=== PATIENT | female | born 1945 | race Caucasian/White ===

== ENCOUNTER 2017-07-27 16:07 | Inpatient (IN) | payer MEDICARE, OTHER ==
--- NOTE | 2017-07-27 16:25 | ED Physician Chart ---
ED Chief Complaint/HPI - Patient Information Date Seen:: 07/27/17 Time Seen:: 16:00 Chief Complaint:: Agitation History of Present Illness:: onset x 2 days of agitation and hostile behavior; no report of trauma, SIs, H/As , S/T, neck pain, C/P, SOB, Abd. Pain, A/N/V/D/C, fever, chills, or urinary s/s Historian:: Patient, EMS Review:: Nurse's Note Reviewed, Old Chart Reviewed, EMS run form Reviewed <Kavin Jarquin - Last Filed: 07/27/17 18:43> - Patient Information Allergies:: Allergies Allergy/AdvReac Type Severity Reaction Status Date / Time bee pollen Allergy Verified 07/27/17 16:53 pepper (genus Capsicum) Allergy Verified 07/27/17 16:52 Vitals:: Vital Signs - 8 hr 07/27/17 16:39 Temp 97.9 F HR 82 RR 16 BP 137/69 O2 Sat % 93 <Toyin Talbert - Last Filed: 07/27/17 19:47> ED Review of Systems - Review of Systems General/Constitutional: No fever, No chills, No weight loss, No weakness, No diaphoresis, No edema, No loss of appetite Skin: No skin lesions, No rash, No bruising Head: No headache, No light-headedness Eyes: No loss of vision, No pain, No diplopia ENT: No earache, No nasal drainage, No sore throat, No tinnitus Neck: No neck pain, No swelling, No thyromegaly, No stiffness, No mass noted Cardio Vascular: No chest pain, No palpitations, No PND, No orthopnea, No edema Pulmonary: No SOB, No cough, No sputum, No wheezing GI: No nausea, No vomiting, No diarrhea, No pain, No melena, No hematochezia, No constipation, No hematemesis G/U: No dysuria, No frequency, No hematuria, No nacturia Card Lacer: No vaginal discharge, No abnormal vaginal bleed, No contraction Musculoskeletal: No bone or joint pain, No back pain, No muscle pain Endocrine: No polyuria, No polydipsia Psychiatric: Prior psych history, Depression, Anxiety, No suicidal ideation, No homicidal ideation, No auditory hallucination, No visual hallucination Hematopoietic: No bruising, No lymphadenopathy Allergic/Immuno: No urticaria, No angioedema Neurological: No syncope, No focal symptoms, No weakness, No paresthesia, No headache, No seizure, No dizziness, Confusion, No vertigo <Kavin Jarquin - Last Filed: 07/27/17 18:43> ED Past Medical History - Past Medical History Obtainable: Yes Past Medical History: HTN, Dyslipidemia, Dementia Family History: HTN Social History: Non Smoker, No Alcohol, No Drug Use, , Care Facility Surgical History: None Psychiatricy History: Depression, Bipolar, Dementia Medication: Reviewed <Kavin Jarquin Last Filed: 07/27/17 18:43> Family Medical History - Family Member Mother History Unknown: Yes <Kavin Jarquin Filed: 07/27/17 18:43> ED Physical Exam - Physical Examination General/Constitutional: Awake, Well-developed, well-nourished, Alert, No distress, GCS 15, Non-toxic appearing, Ambulatory Head: Atraumatic Eyes: Lids, conjuctiva normal, PERRL, EOMI Skin: Nl inspection, No rash, No skin lesions, No ecchymosis, Well hydrated, No lymphadenopathy ENMT: External ears, nose nl, TM canals nl, Nasal exam nl, Lips, teeth, gums nl , Oropharynx nl, Tonsils nl Neck: Nontender, Full ROM w/o pain, No JVD, No nuchal rigidity, No bruit, No mass, No stridor Respiratory: Nl effort/Exclusion, Clear to Auscultation, No Wheeze/Rhonchi/Rales Cardio Vascular: RRR, No murmur, gallop, rubs, NL S1 S2, Carotid/Femoral/Distal pulses equal bilaterally GI: No tenderness/rebounding/guarding, No organomegaly, No hernia, Normal BS's, Nondistended, No mass/bruits, No McBurney tenderness Other GI comments:: no pulsatile masses : No CVA tenderness Extremities: No tenderness or effusion, Full ROM, normal strength in all extremities, No edema, Normal digits & nails Neuro/Psych: Alert/oriented, DTR's symmetric, Normal sensory exam, Normal motor strength, Judgement/insight normal, Mood normal, Normal gait, No focal deficits Other Neuro/Psych comments:: + Psychomotor Agitation; no SIs; Mood/Affect: Labile Misc: Normal back, No paraspinal tenderness <Kavin Jarquin - Last Filed: 07/27/17 18:43> ED Labs/Radiology/EKG Results - Lab Results Comments:: unremarkable - EKG Interpretations EKG Time:: 16:28 Rate & Rhythm: 81; NSR Comments:: non-specific st-t changes; T-Wave Inversions in V1 to V4 <Kavin Jarquin - Last Filed: 07/27/17 18:43> - Lab Results Results: Laboratory Tests 07/27/17 07/27/17 07/27/17 16:36 16:36 16:36 WBC 12.7 H RBC 5.78 H Hgb 14.0 Hct 43.2 MCV 74.8 L MCH 24.2 L MCHC Differential 32.3 RDW 17.0 Plt Count 236 MPV 8.4 Band Neutrophils % 0 Neutrophils (Manual) 77 Lymphocytes 17 L Monocytes 5 Eosinophils 1 Platelet Estimate ADEQUATE Microcytosis 2+ Sodium 139 Potassium 4.1 Chloride 104 Carbon Dioxide 27.0 Anion Gap 12.1 BUN 22 Creatinine 0.6 Est GFR ( Amer) TNP Est GFR (Non-Af Amer) TNP BUN/Creatinine Ratio 36.7 Glucose 98 Whole Bld Lactic Acid Calcium 9.0 Total Bilirubin 0.5 AST 9 L ALT 9 Alkaline Phosphatase 83 Troponin I Total Protein 6.5 Albumin 3.8 Globulin 2.7 Albumin/Globulin Ratio 1.4 Triglycerides 150 Cholesterol 146 LDL Cholesterol Direct 92 HDL Cholesterol 25 TSH 0.71 Salicylates < 25.0 L Acetaminophen < 10.0 L Ethyl Alcohol < 10 07/27/17 07/27/17 16:36 16:36 WBC RBC Hgb Hct MCV MCH MCHC Differential RDW Plt Count MPV Band Neutrophils % Neutrophils (Manual) Lymphocytes Monocytes Eosinophils Platelet Estimate Microcytosis Sodium Potassium Chloride Carbon Dioxide Anion Gap BUN Creatinine Est GFR ( Amer) Est GFR (Non-Af Amer) BUN/Creatinine Ratio Glucose Whole Bld Lactic Acid 0.66 Calcium Total Bilirubin AST ALT Alkaline Phosphatase Troponin I < 0.01 L Total Protein Albumin Globulin Albumin/Globulin Ratio Triglycerides Cholesterol LDL Cholesterol Direct HDL Cholesterol TSH Salicylates Acetaminophen Ethyl Alcohol <Toyin Talbert - Last Filed: 07/27/17 19:47> ED Septic Shock - . Is Septic Shock (SBP<90, OR Lactate>4 mmol\L) present?: No <Kavin Jarquin - Last Filed: 07/27/17 18:43> - <6hrs of presentation: Vital Signs: Vital Signs - 8 hr 07/27/17 16:39 Temp 97.9 F HR 82 RR 16 BP 137/69 O2 Sat % 93 <Toyin Talbert - Last Filed: 07/27/17 19:47> ED Discharge Plan <Kavin Jarquin - Last Filed: 07/27/17 18:43> <Toyin Talbert - Last Filed: 07/27/17 19:47> - Patient Disposition Admit/Discharge/Transfer: Acute Care w/in this hosp
[2017-07-27 16:45] LABS: HEMATOCRIT 43.2 % (41.0-60); MEAN CELL VOLUME 74.8 fl (81-100); MEAN CORPUSCULAR HEMOGLOBIN 24.2 pg (27.0-31.0); MEAN CORPUSCULAR HGB CONC 32.3 pg (28.0-36.0); MEAN PLATELET VOLUME 8.4 fl; PLATELET COUNT 236 Th/cmm (150-400); RED BLOOD COUNT 5.78 Mil/cmm (3.80-5.20)
[2017-07-27 16:53] LABS: MANUAL DIFF REQUIRED? YES; WHITE BLOOD COUNT 12.7 Th/cmm (4.8-10.8)
[2017-07-27 17:19] LABS: BAND NEUTROPHILE 0 % (0-10); EOSINOPHIL 1 % (0-5); LYMPHOCYTE 17 % (20-50); MONOCYTE 5 % (2-10); NEUTROPHILS 77 % (40-80); PLATELET ESTIMATE ADEQUATE (NORMAL); TOTAL CELLS COUNTED 100
[2017-07-27 17:25] LABS: ACETAMINOPHEN < 10.0 ug/mL (10.0-30.0); ALB/GLOB RATIO 1.4 (1.0-1.8); ALBUMIN 3.8 gm/dL (3.7-5.3); ALKALINE PHOSPHATASE 83 U/L (34-104); ANION GAP 12.1 (7.0-16.0); BILIRUBIN,TOTAL 0.5 mg/dL (0.3-1.0); BUN - UREA NITROGEN 22 mg/dL (7-25); CHLORIDE 104 mEq/L (98-107); CHOLESTEROL 146 mg/dL (<200); CREATININE - SERUM 0.6 mg/dL (0.6-1.2); GLUCOSE 98 mg/dL (70-105); HDL -HIGH DENSITY LIPOPROTEIN 25 mg/dL (23-92); POTASSIUM SERUM 4.1 mEq/L (3.5-5.1); SGOT 9 U/L (13-39); SGPT/ALT 9 U/L (7-52); SODIUM SERUM 139 mEq/L (136-145); TOTAL PROTEIN,SERUM 6.5 gm/dL (6.0-8.3); TRIGLYCERIDES 150 mg/dL (<150)
[2017-07-27 17:34] LABS: SALICYLATES (ASPIRIN) < 25.0 mg/L (30.0-100.0)
[2017-07-27 20:25] LABS: A1C % 5.6 % (4.0-6.0)
[2017-07-27 23:14] VITALS: BP 111/60
[2017-07-27] MEDS ORDERED: Ipratropium Neb 0.5 mg/2.5 mL UD HHN PRN (23:24)
[2017-07-27] MEDS ORDERED: Magnesium Hydroxide (MOM) 30 mL UDC PO PRN (23:24)
[2017-07-28] MEDS: Potassium Chloride 10 mEq ER Tab PO SCH ×2 (09:34→17:51)
[2017-07-28] MEDS: Hydrocodone/APAP 10 mg/325 mg Tab PO SCH ×2 (09:39→21:39)
[2017-07-28] MEDS: Multivitamin Tab PO SCH (09:39)
--- NOTE | 2017-07-28 15:30 | Psychosocial Evaluation ---
DATE OF SERVICE: 07/28/2017 IDENTIFYING DATA: The patient is a 71-year-old woman, resident of [facility] in [place]. Information obtained by directly interviewing the patient as well as reviewing the admission papers. JUSTIFICATION FOR HOSPITALIZATION: The patient is admitted here on a voluntary basis in view of her agitation and irritability. CHIEF COMPLAINT: "Don't mess with Floresita." HISTORY OF PRESENT ILLNESS: This is the first psychiatric hospitalization to [facility] for this patient, who is reported to have been getting easily agitated and has been screaming and yelling and during the evaluation, the patient has been superficially cooperative and has been mentioning that, "Floresita has worked so hard and that one should not mess with her." The patient is going on a tangent. The patient is noted to be very paranoid. Review of the chart indicated that the patient has been on 0.25 mg twice a day of the anxiety medication and also has been on Aricept and Namenda. The patient has been getting easily irritable, angry and laughing and giggling when I am asking. The patient has been getting Depakote 250 mg twice a day for her agitated behavior. PAST PSYCHIATRIC HISTORY: Details are not known. MEDICAL HISTORY: Physical examination is requested to be done by Dr. Jacinto. SUBSTANCE ABUSE HISTORY: None. PHYSICAL OR SEXUAL ABUSE HISTORY: None. LEGAL PROBLEMS: None at this time. STRENGTH AND ASSETS: The patient is motivated. The patient is alert and aware that she is in the hospital and she is fully aware. The patient is more worried about her money at this time. DIAGNOSTIC IMPRESSION: AXIS I: Bipolar disorder, mixed. AXIS II: None. AXIS III: As per Dr. Jacinto. IMMEDIATE TREATMENT PLAN: The patient is going to be observed on the inpatient unit, provided with supportive psychotherapy. The patient is going to be closely monitored. Encouraged to verbalize the concerns rather than to act out. ESTIMATED LENGTH OF STAY: 5-7 days. DISCHARGE CRITERIA: When the patient is no longer a threat to self or others and be able to cope up with the stress. JOB# [id number]
--- NOTE | 2017-07-28 16:58 | History and Physical ---
History of Present Illness - HPI Chief Complaint: AGITATION HPI: THIS IS A 71-YEAR OLD FEMALE WHO IS A ALF RESIDENT ADMITTED TO THE GEROPSYCH UNIT DUE TO AGITATION. Vital Signs: Last Vital Signs Temp 98.9 F 07/28/17 15:17 Pulse 65 07/28/17 15:17 Resp 19 07/28/17 15:17 BP 101/62 07/28/17 09:38 Pulse Ox 99 07/28/17 15:17 Past Medical History Other History: HTN, Dyslipidemia, Dementia Family Medical History - Family Member Mother History Unknown: Yes Ethnicity: Non- Living Status: Unknown Hx Family Cancer: (UNKNOWN) Hx Family Coronary Artery Disease: (UNKNOWN) Hx Family Congestive Heart Failure: (UNKNOWN) Hx Family Hypertension: Yes Hx Family Stroke: (UNKNOWN) Hx Family Diabetes: (UNKNOWN) Hx Family Seizures: (UNKNOWN) Hx Family Dementia: (UNKNOWN) Hx Family AIDS: (UNKNOWN) Hx Family COPD: (UNKNOWN) Hx Family Hepatitis: (UNKNOWN) Hx Family Psychiatric Problems: (UNKNOWN) Hx Family Tuberculosis: (UNKNOWN) Social History Smoke: No Alcohol: None Drugs: None Lives: Skilled Nursing - Medications Home Medications: Home Medication Medication Instructions Recorded Type Acetaminophen 650 mg PO Q4HR 07/27/17 History Acetaminophen 650 mg PO Q4HR PRN 07/27/17 History Acetaminophen [Tylenol] 325 mg PO Q4HR PRN 07/27/17 History Alprazolam [Alprazolam*] 0.25 mg PO Q4HR PRN 07/27/17 History Aspirin [Aspirin Chewable] 81 mg PO DAILY 07/27/17 History Atorvastatin Calcium [Lipitor] 40 mg PO HS 07/27/17 History Carvedilol [Coreg] 12.5 mg PO BID 07/27/17 History Clonidine HCl [Catapres] 0.1 mg PO Q4HR PRN 07/27/17 History Clopidogrel [Plavix] 75 mg PO DAILY 07/27/17 History Divalproex Sodium [Depakote] 250 mg PO BID 07/27/17 History Docusate Sodium [Colace] 100 mg PO BID 07/27/17 History Donepezil HCl [Donepezil HCl Odt] 5 mg PO HS 07/27/17 History Famotidine [Pepcid] 40 mg PO DAILY 07/27/17 History Furosemide [Lasix] 20 mg PO DAILY 07/27/17 History Hydrocodone/APAP 10 mg/325 mg 1 tab PO Q12HR 07/27/17 History [[place] 10 mg/325 mg] Ipratropium Neb 0.5 mg/2.5 mL 1 inh INH Q4HR PRN 07/27/17 History [Atrovent Neb 0.5MG/2.5ML] Magnesium Hydroxide [Milk of 30 ml PO BID PRN 07/27/17 History Magnesia] Multivitamin [Multi-Day Vitamins] 1 tab PO DAILY 07/27/17 History Nitroglycerin [Nitroglycerin*] 0.4 mg SL Q5MIN PRN 07/27/17 History Ondansetron [Zofran ODT] 4 mg PO Q4HR PRN 07/27/17 History Potassium Chloride [K-Tab ER] 10 meq PO BID 07/27/17 History alprazOLAM [Xanax*] 0.25 mg PO BID 07/27/17 History - Allergies Allergies/Adverse Reactions: Allergies Allergy/AdvReac Type Severity Reaction Status Date / Time bee pollen Allergy Verified 07/27/17 16:53 pepper (genus Capsicum) Allergy Verified 07/27/17 16:52 Review of Systems - Review of Systems Constitutional: Report: No Significant Eyes: Report: No Significant Respiratory: Report: No Significant Cardiovascular: Report: No Significant Neurological: Report: No Significant Physical Exam - Physical Exam HEENT: Report: Ears Nose Throat within normal limits Neck: Report: Within normal limits Cardiovascular Systems: Report: +s1/s2 noted, Regular, Rate and Rhythm Respiratory: Report: Breath Sounds are within normal limits Abdomen: Report: Non-tender to palpation Skin: Report: Color of skin is within normal limits Neuro/Psych: Report: Mood affect is within normal limits - Lab Results All Lab Results last 24 hours: Laboratory Results - last 24 hr 07/27/17 07/27/17 07/27/17 16:36 16:36 16:36 Band Neutrophils % 0 Neutrophils (Manual) 77 Lymphocytes 17 L Monocytes 5 Eosinophils 1 Platelet Estimate ADEQUATE Microcytosis 2+ Sodium 139 Potassium 4.1 Chloride 104 Carbon Dioxide 27.0 Anion Gap 12.1 BUN 22 Creatinine 0.6 Est GFR ( Amer) TNP Est GFR (Non-Af Amer) TNP BUN/Creatinine Ratio 36.7 Glucose 98 Hemoglobin A1c % 5.6 Whole Bld Lactic Acid Calcium 9.0 Total Bilirubin 0.5 AST 9 L ALT 9 Alkaline Phosphatase 83 Troponin I Total Protein 6.5 Albumin 3.8 Globulin 2.7 Albumin/Globulin Ratio 1.4 Triglycerides 150 Cholesterol 146 LDL Cholesterol Direct 92 HDL Cholesterol 25 TSH Salicylates < 25.0 L Acetaminophen < 10.0 L Valproic Acid Ethyl Alcohol < 10 07/27/17 07/27/17 07/27/17 16:36 16:36 16:36 Band Neutrophils % Neutrophils (Manual) Lymphocytes Monocytes Eosinophils Platelet Estimate Microcytosis Sodium Potassium Chloride Carbon Dioxide Anion Gap BUN Creatinine Est GFR ( Amer) Est GFR (Non-Af Amer) BUN/Creatinine Ratio Glucose Hemoglobin A1c % Whole Bld Lactic Acid 0.66 Calcium Total Bilirubin AST ALT Alkaline Phosphatase Troponin I < 0.01 L Total Protein Albumin Globulin Albumin/Globulin Ratio Triglycerides Cholesterol LDL Cholesterol Direct HDL Cholesterol TSH 0.71 Salicylates Acetaminophen Valproic Acid Ethyl Alcohol 07/28/17 06:45 Band Neutrophils % Neutrophils (Manual) Lymphocytes Monocytes Eosinophils Platelet Estimate Microcytosis Sodium Potassium Chloride Carbon Dioxide Anion Gap BUN Creatinine Est GFR ( Amer) Est GFR (Non-Af Amer) BUN/Creatinine Ratio Glucose Hemoglobin A1c % Whole Bld Lactic Acid Calcium Total Bilirubin AST ALT Alkaline Phosphatase Troponin I Total Protein Albumin Globulin Albumin/Globulin Ratio Triglycerides Cholesterol LDL Cholesterol Direct HDL Cholesterol TSH Salicylates Acetaminophen Valproic Acid < 10.0 L Ethyl Alcohol Microbiology 07/27/17 16:36 - Preliminary Blood NO GROWTH AFTER 24 HOURS - Assessment Assessment: HTN, Dyslipidemia, Dementia - Plan Plan: monitor Bp closely continue current plan of care
[2017-07-28] MEDS ORDERED: Non-Formulary Item 1 EA (Atorvastatin Calcium [Lipitor] 40 MG) PO SCH (21:00)
[2017-07-29] MEDS: Multivitamin Tab PO SCH ×2 (09:45→10:15)
[2017-07-29] MEDS: Potassium Chloride 10 mEq ER Tab PO SCH ×2 (09:45→10:16)
[2017-07-29] MEDS: Hydrocodone/APAP 10 mg/325 mg Tab PO SCH ×3 (09:46→22:05)
--- NOTE | 2017-07-29 10:22 | General Progress Note ---
Subjective - Review of Systems Events since last encounter: patient awake irritable denies pain Objective - Results Result Diagrams: 07/27/17 16:36 07/27/17 16:36 Recent Labs: Laboratory Last Values WBC 12.7 Th/cmm (4.8-10.8) H 07/27/17 16:36 RBC 5.78 Mil/cmm (3.80-5.20) H 07/27/17 16:36 Hgb 14.0 gm/dL (12-16) 07/27/17 16:36 Hct 43.2 % (41.0-60) 07/27/17 16:36 MCV 74.8 fl (81-100) L 07/27/17 16:36 MCH 24.2 pg (27.0-31.0) L 07/27/17 16:36 MCHC Differential 32.3 pg (28.0-36.0) 07/27/17 16:36 RDW 17.0 % (11.5-20.0) 07/27/17 16:36 Plt Count 236 Th/cmm (150-400) 07/27/17 16:36 MPV 8.4 fl 07/27/17 16:36 Band Neutrophils % 0 % (0-10) 07/27/17 16:36 Neutrophils (Manual) 77 % (40-80) 07/27/17 16:36 Lymphocytes 17 % (20-50) L 07/27/17 16:36 Monocytes 5 % (2-10) 07/27/17 16:36 Eosinophils 1 % (0-5) 07/27/17 16:36 Platelet Estimate ADEQUATE (NORMAL) 07/27/17 16:36 Microcytosis 2+ 07/27/17 16:36 Sodium 139 mEq/L (136-145) 07/27/17 16:36 Potassium 4.1 mEq/L (3.5-5.1) 07/27/17 16:36 Chloride 104 mEq/L (98-107) 07/27/17 16:36 Carbon Dioxide 27.0 mEq/L (21.0-31.0) 07/27/17 16:36 Anion Gap 12.1 (7.0-16.0) 07/27/17 16:36 BUN 22 mg/dL (7-25) 07/27/17 16:36 Creatinine 0.6 mg/dL (0.6-1.2) 07/27/17 16:36 Est GFR ( Amer) TNP 07/27/17 16:36 Est GFR (Non-Af Amer) TNP 07/27/17 16:36 BUN/Creatinine Ratio 36.7 07/27/17 16:36 Glucose 98 mg/dL (70-105) 07/27/17 16:36 Hemoglobin A1c % 5.6 % (4.0-6.0) 07/27/17 16:36 Whole Bld Lactic Acid 0.66 mmol/L (0.60-1.99) 07/27/17 16:36 Calcium 9.0 mg/dL (8.6-10.3) 07/27/17 16:36 Total Bilirubin 0.5 mg/dL (0.3-1.0) 07/27/17 16:36 AST 9 U/L (13-39) L 07/27/17 16:36 ALT 9 U/L (7-52) 07/27/17 16:36 Alkaline Phosphatase 83 U/L (34-104) 07/27/17 16:36 Troponin I < 0.01 ng/mL (0.01-0.05) L 07/27/17 16:36 Total Protein 6.5 gm/dL (6.0-8.3) 07/27/17 16:36 Albumin 3.8 gm/dL (3.7-5.3) 07/27/17 16:36 Globulin 2.7 gm/dL 07/27/17 16:36 Albumin/Globulin Ratio 1.4 (1.0-1.8) 07/27/17 16:36 Triglycerides 150 mg/dL (<150) 07/27/17 16:36 Cholesterol 146 mg/dL (<200) 07/27/17 16:36 LDL Cholesterol Direct 92 mg/dL (75-193) 07/27/17 16:36 HDL Cholesterol 25 mg/dL (23-92) 07/27/17 16:36 TSH 0.71 uIU/ml (0.34-5.60) 07/27/17 16:36 Salicylates < 25.0 mg/L (30.0-100.0) L 07/27/17 16:36 Acetaminophen < 10.0 ug/mL (10.0-30.0) L 07/27/17 16:36 Valproic Acid < 10.0 ug/mL (50.0-100.0) L 07/28/17 06:45 Ethyl Alcohol < 10 mg/dL (0-10) 07/27/17 16:36 - Physical Exam Vitals and I&O: Vital Signs Temp 98.1 F 07/28/17 20:00 Pulse 65 07/28/17 20:00 Resp 20 07/28/17 20:00 BP 127/63 07/28/17 20:00 Pulse Ox 98 07/28/17 20:00 Intake & Output 07/28/17 07/29/17 07/29/17 18:59 06:59 18:59 Intake Total 1300 540 Balance 1300 540 Intake: Oral 1300 540 Other: # Voids 3 2 # Bowel Movements 1 1 Stool Characteristics Formed Active Medications: Current Medications Acetaminophen (Tylenol) 650 mg PO Q4HR PRN PRN Reason: Fever > 101 Stop: 09/25/17 23:23 Acetaminophen (Tylenol) 325 mg PO Q4HR PRN PRN Reason: Pain (Mild) Stop: 09/25/17 23:23 Acetaminophen (Tylenol) 650 mg PO Q4HR PRN PRN Reason: Pain (Moderate) Stop: 09/26/17 00:00 Acetaminophen/Hydrocodone Bitart ([place] 10 Mg/325 Mg) 1 tab PO Q12HR COUNTS INCLUDE 234 BEDS AT THE [facility] Stop: 09/26/17 08:59 Last Admin: 07/29/17 10:15 Dose: Not Given Alprazolam (Xanax) 0.25 mg PO BID PRN; Protocol PRN Reason: Anxiety Stop: 09/26/17 06:16 Atorvastatin Calcium (Lipitor) 40 mg PO HS COUNTS INCLUDE 234 BEDS AT THE [facility] Stop: 09/26/17 20:59 Last Admin: 07/28/17 21:30 Dose: 40 mg Carvedilol (Coreg) 12.5 mg PO BID COUNTS INCLUDE 234 BEDS AT THE [facility] Stop: 09/26/17 08:59 Last Admin: 07/29/17 10:15 Dose: Not Given Clopidogrel Bisulfate (Plavix) 75 mg PO DAILY COUNTS INCLUDE 234 BEDS AT THE [facility] Stop: 09/26/17 08:59 Last Admin: 07/29/17 10:15 Dose: Not Given Divalproex Sodium (Depakote Dr) 250 mg PO BID COUNTS INCLUDE 234 BEDS AT THE [facility]; Protocol Stop: 09/26/17 08:59 Last Admin: 07/29/17 10:15 Dose: Not Given Docusate Sodium (Colace) 100 mg PO BID GIANCARLO Stop: 09/26/17 08:59 Last Admin: 07/29/17 10:15 Dose: Not Given Donepezil HCl (Aricept) 5 mg PO HS COUNTS INCLUDE 234 BEDS AT THE [facility] Stop: 09/26/17 20:59 Last Admin: 07/28/17 21:41 Dose: 5 mg Famotidine (Pepcid) 40 mg PO DAILY GIANCARLO Stop: 09/26/17 08:59 Last Admin: 07/29/17 10:15 Dose: Not Given Furosemide (Lasix) 20 mg PO DAILY GIANCARLO Stop: 09/26/17 08:59 Last Admin: 07/29/17 10:15 Dose: Not Given Ipratropium [place] (Atrovent Neb 0.5mg/2.5ml) 0.5 mg HHN Q4HR PRN PRN Reason: copd Stop: 09/25/17 23:23 Magnesium Hydroxide (Milk Of Magnesia) 30 ml PO BID PRN PRN Reason: Constipation Stop: 09/25/17 23:23 Multivitamins/Vitamin C (Theragran) 1 tab PO DAILY COUNTS INCLUDE 234 BEDS AT THE [facility] Stop: 09/26/17 08:59 Last Admin: 07/29/17 10:15 Dose: Not Given Nitroglycerin (Nitrostat) 0.4 mg SL Q5MIN PRN PRN Reason: Chest Pain Stop: 09/25/17 23:23 Ondansetron HCl (Zofran Odt) 4 mg PO Q4HR PRN PRN Reason: Nausea Stop: 09/25/17 23:23 Potassium Chloride (Klor-Con) 10 meq PO BID GIANCARLO Stop: 09/26/17 08:59 Last Admin: 07/29/17 10:16 Dose: Not Given Quetiapine Fumarate (Seroquel) 12.5 mg PO HS COUNTS INCLUDE 234 BEDS AT THE [facility]; Protocol Stop: 09/26/17 20:59 Last Admin: 07/28/17 21:41 Dose: 12.5 mg Zolpidem Tartrate (Ambien) 5 mg PO HS PRN PRN Reason: Insomnia Stop: 09/25/17 22:59 Last Admin: 07/28/17 21:49 Dose: 5 mg General: No acute distress HEENT: Atraumatic Neck: Supple, Thyromegaly Cardiovascular: Regular rate, Normal S1, Normal S2 Lungs: Clear to auscultation Abdomen: Bowel sounds Assessment/Plan - Problem List Patient Problems: All Active Problems Dementia (Acute) F03.90 Dyslipidemia (Acute) E78.5 HTN (hypertension) (Acute) I10 - Plan Plan: as per psych
--- NOTE | 2017-07-29 13:50 | Progress Notes ---
DATE: 07/29/2017 SUBJECTIVE: Staff was spoken to. The patient is interviewed. Mood is noted to be irritable. Affect is constricted. Coping skills are noted to be very poor at this time. Insight and judgment also noted very much impaired. The patient has been having difficult time to cope with the stress. The patient is having acute mood swings. The patient is getting easily irritable even at the staff. The patient is currently on the alprazolam 0.25 mg on a p.r.n. basis. The patient is getting valproic acid 250 mg twice a day. The patient has been placed on the Seroquel, which is given at 12.5 mg. I am planning to increase Seroquel to 25 mg today. I encouraged the patient to verbalize the concerns rather than to act out. ____ that the patient is paranoid and having acute mood swings and is not ready to be discharged to a lower level of care. [facility]# [id number]
[2017-07-30] MEDS: Multivitamin Tab PO SCH (09:39)
[2017-07-30] MEDS: Potassium Chloride 10 mEq ER Tab PO SCH ×2 (09:40→17:02)
[2017-07-30] MEDS: Hydrocodone/APAP 10 mg/325 mg Tab PO SCH ×2 (09:43→21:00)
--- NOTE | 2017-07-30 11:16 | General Progress Note ---
Subjective - Review of Systems Events since last encounter: patient irritable awake alert Objective - Results Result Diagrams: 07/27/17 16:36 07/27/17 16:36 Recent Labs: Laboratory Last Values WBC 12.7 Th/cmm (4.8-10.8) H 07/27/17 16:36 RBC 5.78 Mil/cmm (3.80-5.20) H 07/27/17 16:36 Hgb 14.0 gm/dL (12-16) 07/27/17 16:36 Hct 43.2 % (41.0-60) 07/27/17 16:36 MCV 74.8 fl (81-100) L 07/27/17 16:36 MCH 24.2 pg (27.0-31.0) L 07/27/17 16:36 MCHC Differential 32.3 pg (28.0-36.0) 07/27/17 16:36 RDW 17.0 % (11.5-20.0) 07/27/17 16:36 Plt Count 236 Th/cmm (150-400) 07/27/17 16:36 MPV 8.4 fl 07/27/17 16:36 Band Neutrophils % 0 % (0-10) 07/27/17 16:36 Neutrophils (Manual) 77 % (40-80) 07/27/17 16:36 Lymphocytes 17 % (20-50) L 07/27/17 16:36 Monocytes 5 % (2-10) 07/27/17 16:36 Eosinophils 1 % (0-5) 07/27/17 16:36 Platelet Estimate ADEQUATE (NORMAL) 07/27/17 16:36 Microcytosis 2+ 07/27/17 16:36 Sodium 139 mEq/L (136-145) 07/27/17 16:36 Potassium 4.1 mEq/L (3.5-5.1) 07/27/17 16:36 Chloride 104 mEq/L (98-107) 07/27/17 16:36 Carbon Dioxide 27.0 mEq/L (21.0-31.0) 07/27/17 16:36 Anion Gap 12.1 (7.0-16.0) 07/27/17 16:36 BUN 22 mg/dL (7-25) 07/27/17 16:36 Creatinine 0.6 mg/dL (0.6-1.2) 07/27/17 16:36 Est GFR ( Amer) TNP 07/27/17 16:36 Est GFR (Non-Af Amer) TNP 07/27/17 16:36 BUN/Creatinine Ratio 36.7 07/27/17 16:36 Glucose 98 mg/dL (70-105) 07/27/17 16:36 Hemoglobin A1c % 5.6 % (4.0-6.0) 07/27/17 16:36 Whole Bld Lactic Acid 0.66 mmol/L (0.60-1.99) 07/27/17 16:36 Calcium 9.0 mg/dL (8.6-10.3) 07/27/17 16:36 Total Bilirubin 0.5 mg/dL (0.3-1.0) 07/27/17 16:36 AST 9 U/L (13-39) L 07/27/17 16:36 ALT 9 U/L (7-52) 07/27/17 16:36 Alkaline Phosphatase 83 U/L (34-104) 07/27/17 16:36 Troponin I < 0.01 ng/mL (0.01-0.05) L 07/27/17 16:36 Total Protein 6.5 gm/dL (6.0-8.3) 07/27/17 16:36 Albumin 3.8 gm/dL (3.7-5.3) 07/27/17 16:36 Globulin 2.7 gm/dL 07/27/17 16:36 Albumin/Globulin Ratio 1.4 (1.0-1.8) 07/27/17 16:36 Triglycerides 150 mg/dL (<150) 07/27/17 16:36 Cholesterol 146 mg/dL (<200) 07/27/17 16:36 LDL Cholesterol Direct 92 mg/dL (75-193) 07/27/17 16:36 HDL Cholesterol 25 mg/dL (23-92) 07/27/17 16:36 TSH 0.71 uIU/ml (0.34-5.60) 07/27/17 16:36 Salicylates < 25.0 mg/L (30.0-100.0) L 07/27/17 16:36 Acetaminophen < 10.0 ug/mL (10.0-30.0) L 07/27/17 16:36 Valproic Acid < 10.0 ug/mL (50.0-100.0) L 07/28/17 06:45 Ethyl Alcohol < 10 mg/dL (0-10) 07/27/17 16:36 - Physical Exam Vitals and I&O: Vital Signs Temp 98.1 F 07/30/17 04:56 Pulse 80 07/30/17 09:44 Resp 18 07/30/17 04:56 BP 145/85 07/30/17 09:44 Pulse Ox 91 07/30/17 04:56 Intake & Output 07/29/17 07/30/17 07/30/17 18:59 06:59 18:59 Intake Total 240 Balance 240 Intake: Oral 240 Other: # Voids 2 Active Medications: Current Medications Acetaminophen (Tylenol) 650 mg PO Q4HR PRN PRN Reason: Fever > 101 Stop: 09/25/17 23:23 Acetaminophen (Tylenol) 325 mg PO Q4HR PRN PRN Reason: Pain (Mild) Stop: 09/25/17 23:23 Acetaminophen (Tylenol) 650 mg PO Q4HR PRN PRN Reason: Pain (Moderate) Stop: 09/26/17 00:00 Acetaminophen/Hydrocodone Bitart ([place] 10 Mg/325 Mg) 1 tab PO Q12HR [facility] Stop: 09/26/17 08:59 Last Admin: 07/30/17 09:43 Dose: 1 tab Alprazolam (Xanax) 0.25 mg PO BID PRN; Protocol PRN Reason: Anxiety Stop: 09/26/17 06:16 Atorvastatin Calcium (Lipitor) 40 mg PO HS [facility] Stop: 09/26/17 20:59 Last Admin: 07/29/17 22:05 Dose: 40 mg Carvedilol (Coreg) 12.5 mg PO BID [facility] Stop: 09/26/17 08:59 Last Admin: 07/30/17 09:44 Dose: 12.5 mg Clopidogrel Bisulfate (Plavix) 75 mg PO DAILY [facility] Stop: 09/26/17 08:59 Last Admin: 07/30/17 09:39 Dose: 75 mg Divalproex Sodium (Depakote Dr) 250 mg PO BID [facility]; Protocol Stop: 09/26/17 08:59 Last Admin: 06/04/18 09:41 Dose: 250 mg Docusate Sodium (Colace) 100 mg PO BID [facility] Stop: 09/26/17 08:59 Last Admin: 07/30/17 09:39 Dose: 100 mg Donepezil HCl (Aricept) 5 mg PO HS [facility] Stop: 09/26/17 20:59 Last Admin: 07/29/17 22:05 Dose: 5 mg Famotidine (Pepcid) 40 mg PO DAILY [facility] Stop: 09/26/17 08:59 Last Admin: 07/30/17 09:39 Dose: 40 mg Furosemide (Lasix) 20 mg PO DAILY [facility] Stop: 09/26/17 08:59 Last Admin: 07/30/17 09:41 Dose: 20 mg Ipratropium [place] (Atrovent Neb 0.5mg/2.5ml) 0.5 mg HHN Q4HR PRN PRN Reason: copd Stop: 09/25/17 23:23 Magnesium Hydroxide (Milk Of Magnesia) 30 ml PO BID PRN PRN Reason: Constipation Stop: 09/25/17 23:23 Multivitamins/Vitamin C (Theragran) 1 tab PO DAILY [facility] Stop: 09/26/17 08:59 Last Admin: 07/30/17 09:39 Dose: Not Given Nitroglycerin (Nitrostat) 0.4 mg SL Q5MIN PRN PRN Reason: Chest Pain Stop: 09/25/17 23:23 Ondansetron HCl (Zofran Odt) 4 mg PO Q4HR PRN PRN Reason: Nausea Stop: 09/25/17 23:23 Potassium Chloride (Klor-Con) 10 meq PO BID [facility] Stop: 09/26/17 08:59 Last Admin: 07/30/17 09:40 Dose: 10 meq Quetiapine Fumarate (Seroquel) 25 mg PO HS [facility]; Protocol Stop: 09/27/17 20:59 Last Admin: 07/29/17 22:03 Dose: 25 mg Zolpidem Tartrate (Ambien) 5 mg PO HS PRN PRN Reason: Insomnia Stop: 09/25/17 22:59 Last Admin: 07/28/17 21:49 Dose: 5 mg General: No acute distress HEENT: Atraumatic Neck: Supple, Thyromegaly Cardiovascular: Regular rate, Normal S1, Normal S2 Lungs: Clear to auscultation Abdomen: Bowel sounds Assessment/Plan - Problem List Patient Problems: All Active Problems Dementia (Acute) F03.90 Dyslipidemia (Acute) E78.5 HTN (hypertension) (Acute) I10 - Plan Plan: as per psych
--- NOTE | 2017-07-31 00:13 | Progress Notes ---
DATE: 07/30/2017 SUBJECTIVE: Staff was spoken to. The patient is interviewed. Mood is noted to be irritable. Affect is constricted. The patient's insight and judgment at this time are noted to be ____. Impulse control was noted to be limited. The patient has been having difficult time to cope with the stress. The patient is having acute mood swings at this time. ASSESSMENT: The patient is still grossly psychotic. PLAN: To continue the patient with the supportive therapy. Encouraged the patient to verbalize the concerns rather than to act out. JOB# [id number]
[2017-07-31] MEDS: Potassium Chloride 10 mEq ER Tab PO SCH ×2 (09:24→17:21)
[2017-07-31] MEDS: Hydrocodone/APAP 10 mg/325 mg Tab PO SCH ×2 (09:24→21:05)
[2017-07-31] MEDS: Multivitamin Tab PO SCH (09:25)
--- NOTE | 2017-07-31 16:56 | Consultation ---
DATE OF CONSULTATION: 07/30/2017 REQUESTING PHYSICIAN: Arsen Oswald M.D. TYPE OF CONSULTATION: Psychology. HISTORY OF PRESENT ILLNESS: The patient is a 71-year-old female. The patient is a resident of [facility] in [place]. The patient is known to this typewriter mechanic from that snf facility. The following is by review of the medical record and by patient's self-report. The patient is being admitted due to agitation and increased irritability as well as possible psychosis. The patient was reported to have been getting easily agitated with screaming and yelling episodes at her facility. During the clinical interview, the patient rambled with pressured speech and was difficult to cognitively redirect or reality orient. The patient knows this typewriter mechanic and did respond occasionally to redirection cognitively from her tangential thought. The patient has paranoid ideation as well. The patient had fluctuating moods from laughing and giggling to becoming serious and irritated. The patient denies any suicidal ideation, plan or intention at this time. PAST MEDICAL HISTORY: Please see history and physical by Dr. Jacinto. PAST PSYCHIATRIC HISTORY: The patient has a long history of bipolar disorder, mixed with psychotic features. The patient is under the care of a psychiatrist and psychologist at her placement. SUBSTANCE ABUSE HISTORY: None. PSYCHOSOCIAL HISTORY: The patient denies any history of physical or sexual abuse or any legal problems. The patient did not discuss occupational or educational history. The patient declined to answer any other questions. The patient's thought process is markedly tangential with derailments and difficult to redirect and is highly distractible. The patient wishes to return to her snf facility. MENTAL STATUS EXAMINATION: The patient appears to be her stated age. The patient's attitude is superficially cooperative. Eye contact is fair. Speech is pressured and hyperverbal. Mood is fluctuating from irritability to inappropriate laughing and giggling. Thought process indicates derailments and loose associations and is markedly tangential and highly distractible. The patient denied any auditory or visual hallucinations. There is evidence of some paranoid ideation. The patient's behavior has been difficult to redirect on the unit; however, the patient is becoming more agreeable during the clinical interview. Impulse control is inadequate. Concentration is poor. The patient is easily distracted. Sensorium is alert and oriented to person and place. The patient's immediate memory is intact. Short-term and long-term memory are somewhat impaired; however, the patient is able to recall this typewriter mechanic. The patient did not participate in the interpretation of proverbs. Insight is impaired and Judgment is compromised. DIAGNOSTIC IMPRESSION: AXIS I: Bipolar disorder mixed with psychotic features. AXIS II: Deferred. AXIS III: Please see history and physical by Dr. Jacinto. TREATMENT PLAN: The patient has been seen by Dr. Oswald for psychiatric evaluation and for the management of the patient's psychotropic medications. We will provide supportive psychotherapy to include reality orientation, reality differentiation and reality integration. We will provide de-escalation as well as limit setting. We will provide cognitive behavioral therapy to assist the patient in being able to sustain focus and attention. We will provide motivational asking for the patient to become compliant and stay compliant with all aspects of her care and treatment. We will encourage her to verbalize her concerns versus any verbal outbursts or aggression. We will provide coping strategies for chronic long-term illness as well as phase of life issues. We will encourage the patient to be able to demonstrate emotional self-regulation prior to her discharge. Thank you, Dr. Oswald for this consult and the opportunity to participate with you in this patient's care. [facility]# [id number] L[place]ISE
--- NOTE | 2017-07-31 22:00 | General Progress Note ---
Subjective - Review of Systems Service Date: 07/31/17 Subjective: awake, nad Objective - Results Result Diagrams: 07/27/17 16:36 07/27/17 16:36 Recent Labs: Laboratory Last Values WBC 12.7 Th/cmm (4.8-10.8) H 07/27/17 16:36 RBC 5.78 Mil/cmm (3.80-5.20) H 07/27/17 16:36 Hgb 14.0 gm/dL (12-16) 07/27/17 16:36 Hct 43.2 % (41.0-60) 07/27/17 16:36 MCV 74.8 fl (81-100) L 07/27/17 16:36 MCH 24.2 pg (27.0-31.0) L 07/27/17 16:36 MCHC Differential 32.3 pg (28.0-36.0) 07/27/17 16:36 RDW 17.0 % (11.5-20.0) 07/27/17 16:36 Plt Count 236 Th/cmm (150-400) 07/27/17 16:36 MPV 8.4 fl 07/27/17 16:36 Band Neutrophils % 0 % (0-10) 07/27/17 16:36 Neutrophils (Manual) 77 % (40-80) 07/27/17 16:36 Lymphocytes 17 % (20-50) L 07/27/17 16:36 Monocytes 5 % (2-10) 07/27/17 16:36 Eosinophils 1 % (0-5) 07/27/17 16:36 Platelet Estimate ADEQUATE (NORMAL) 07/27/17 16:36 Microcytosis 2+ 07/27/17 16:36 Sodium 139 mEq/L (136-145) 07/27/17 16:36 Potassium 4.1 mEq/L (3.5-5.1) 07/27/17 16:36 Chloride 104 mEq/L (98-107) 07/27/17 16:36 Carbon Dioxide 27.0 mEq/L (21.0-31.0) 07/27/17 16:36 Anion Gap 12.1 (7.0-16.0) 07/27/17 16:36 BUN 22 mg/dL (7-25) 07/27/17 16:36 Creatinine 0.6 mg/dL (0.6-1.2) 07/27/17 16:36 Est GFR ( Amer) TNP 07/27/17 16:36 Est GFR (Non-Af Amer) TNP 07/27/17 16:36 BUN/Creatinine Ratio 36.7 07/27/17 16:36 Glucose 98 mg/dL (70-105) 07/27/17 16:36 Hemoglobin A1c % 5.6 % (4.0-6.0) 07/27/17 16:36 Whole Bld Lactic Acid 0.66 mmol/L (0.60-1.99) 07/27/17 16:36 Calcium 9.0 mg/dL (8.6-10.3) 07/27/17 16:36 Total Bilirubin 0.5 mg/dL (0.3-1.0) 07/27/17 16:36 AST 9 U/L (13-39) L 07/27/17 16:36 ALT 9 U/L (7-52) 07/27/17 16:36 Alkaline Phosphatase 83 U/L (34-104) 07/27/17 16:36 Troponin I < 0.01 ng/mL (0.01-0.05) L 07/27/17 16:36 Total Protein 6.5 gm/dL (6.0-8.3) 07/27/17 16:36 Albumin 3.8 gm/dL (3.7-5.3) 07/27/17 16:36 Globulin 2.7 gm/dL 07/27/17 16:36 Albumin/Globulin Ratio 1.4 (1.0-1.8) 07/27/17 16:36 Triglycerides 150 mg/dL (<150) 07/27/17 16:36 Cholesterol 146 mg/dL (<200) 07/27/17 16:36 LDL Cholesterol Direct 92 mg/dL (75-193) 07/27/17 16:36 HDL Cholesterol 25 mg/dL (23-92) 07/27/17 16:36 TSH 0.71 uIU/ml (0.34-5.60) 07/27/17 16:36 Salicylates < 25.0 mg/L (30.0-100.0) L 07/27/17 16:36 Acetaminophen < 10.0 ug/mL (10.0-30.0) L 07/27/17 16:36 Valproic Acid < 10.0 ug/mL (50.0-100.0) L 07/28/17 06:45 Ethyl Alcohol < 10 mg/dL (0-10) 07/27/17 16:36 - Physical Exam Vitals and I&O: Vital Signs Temp 98 F 07/31/17 18:27 Pulse 73 07/31/17 18:27 Resp 18 07/31/17 18:27 BP 121/63 07/31/17 18:27 Pulse Ox 93 07/31/17 18:27 Intake & Output 07/31/17 07/31/17 08/01/17 06:59 18:59 06:59 Intake Total 240 Balance 240 Intake: Oral 240 Other: # Voids 2 Active Medications: Current Medications Acetaminophen (Tylenol) 650 mg PO Q4HR PRN PRN Reason: Fever > 101 Stop: 09/25/17 23:23 Acetaminophen (Tylenol) 325 mg PO Q4HR PRN PRN Reason: Pain (Mild) Stop: 09/25/17 23:23 Acetaminophen (Tylenol) 650 mg PO Q4HR PRN PRN Reason: Pain (Moderate) Stop: 09/26/17 00:00 Acetaminophen/Hydrocodone Bitart ([place] 10 Mg/325 Mg) 1 tab PO Q12HR [facility] Stop: 09/26/17 08:59 Last Admin: 07/31/17 21:05 Dose: 1 tab Alprazolam (Xanax) 0.25 mg PO BID PRN; Protocol PRN Reason: Anxiety Stop: 09/26/17 06:16 Atorvastatin Calcium (Lipitor) 40 mg PO HS [facility] Stop: 09/26/17 20:59 Last Admin: 07/31/17 21:05 Dose: 40 mg Carvedilol (Coreg) 12.5 mg PO BID [facility] Stop: 09/26/17 08:59 Last Admin: 07/31/17 17:22 Dose: Not Given Clopidogrel Bisulfate (Plavix) 75 mg PO DAILY [facility] Stop: 09/26/17 08:59 Last Admin: 07/31/17 09:25 Dose: 75 mg Divalproex Sodium (Depakote Dr) 250 mg PO BID [facility]; Protocol Stop: 09/26/17 08:59 Last Admin: 07/31/17 17:21 Dose: 250 mg Docusate Sodium (Colace) 100 mg PO BID [facility] Stop: 09/26/17 08:59 Last Admin: 07/31/17 17:21 Dose: 100 mg Donepezil HCl (Aricept) 5 mg PO HS [facility] Stop: 09/26/17 20:59 Last Admin: 07/31/17 21:05 Dose: 5 mg Famotidine (Pepcid) 40 mg PO DAILY [facility] Stop: 09/26/17 08:59 Last Admin: 07/31/17 09:25 Dose: 40 mg Furosemide (Lasix) 20 mg PO DAILY [facility] Stop: 09/26/17 08:59 Last Admin: 07/31/17 09:25 Dose: 20 mg Ipratropium [place] (Atrovent Neb 0.5mg/2.5ml) 0.5 mg HHN Q4HR PRN PRN Reason: copd Stop: 09/25/17 23:23 Magnesium Hydroxide (Milk Of Magnesia) 30 ml PO BID PRN PRN Reason: Constipation Stop: 09/25/17 23:23 Multivitamins/Vitamin C (Theragran) 1 tab PO DAILY [facility] Stop: 09/26/17 08:59 Last Admin: 07/31/17 09:25 Dose: 1 tab Nitroglycerin (Nitrostat) 0.4 mg SL Q5MIN PRN PRN Reason: Chest Pain Stop: 09/25/17 23:23 Ondansetron HCl (Zofran Odt) 4 mg PO Q4HR PRN PRN Reason: Nausea Stop: 09/25/17 23:23 Potassium Chloride (Klor-Con) 10 meq PO BID [facility] Stop: 09/26/17 08:59 Last Admin: 07/31/17 17:21 Dose: 10 meq Quetiapine Fumarate (Seroquel) 25 mg PO HS [facility]; Protocol Stop: 09/27/17 20:59 Last Admin: 07/31/17 21:05 Dose: 25 mg Zolpidem Tartrate (Ambien) 5 mg PO HS PRN PRN Reason: Insomnia Stop: 09/25/17 22:59 Last Admin: 07/28/17 21:49 Dose: 5 mg General: No acute distress HEENT: Atraumatic Neck: Supple, Thyromegaly Cardiovascular: Regular rate, Normal S1, Normal S2 Lungs: Clear to auscultation Abdomen: Bowel sounds Assessment/Plan - Problem List Patient Problems: All Active Problems Dementia (Acute) F03.90 Dyslipidemia (Acute) E78.5 HTN (hypertension) (Acute) I10 - Plan Plan: as per psych Nutritional Asmnt/Malnutr-PDOC - Dietary Evaluation Malnutrition Findings (Please click <Entered> for more info): Nutritional Asmnt/Malnutrition Start: 07/31/17 15: 07 Text: Status: Complete Freq: Protocol: Document 07/31/17 15:07 LCHENG (Rec: 07/31/17 15:17 [id number] Nutritional Asmnt/Malnutrition Patient General Information Nutritional Screening Moderate Risk Diagnosis psychosis Pertinent Medical Hx/Surgical Hx HTN, dyslipidemia, dementia Subjective Information Pt seen sitting up in bed at time of visit, lunch tray in front. Pt asked dietitian to get out, refused to talk. Per EMR, PO intake 50-1005, avg 75 %. Current Diet Order/ Nutrition Support regular Pertinent Medications colace, lasix, theragran, kcl, seroquel Pertinent Labs 07/27 nutrition labs WNL Nutritional Hx/Data Height 1.6 m Height (Calculated Centimeters) 160.0 Current Weight (lbs) 74.389 kg Weight (Calculated Kilograms) 74.4 Weight (Calculated Grams) 85248.1 [place] Body Weight 63 Body Mass Index (BMI) 29.0 Weight Status Overweight GI Symptoms GI Symptoms None Last BM 6/2 x 2 Difficult in: None Food Allergies Yes: pepper (genus capsicum) Skin Integrity/Comment: intact Estimated Nutritional Goals Calories/Kcals/Kg 25-30 Kcals Calculated [id number] Protein g/k Protein Calculated 53 Fluid: ml 1325-1590ml (1ml/kcal) Nutritional Problem No current Nutrition Prob Problem NA Malnutrition Alert Is there a minimum of two criteria No selected? Query Text:Check all the applicable criteria. A minimum of two criteria are recommended for diagnosis of either severe or non-severe malnutrition. Malnutrition Related to Morbid Obesity Malnutrition related to morbid obesity No Intervention/Recommendation Comments 1. Continue with regular diet as ordered. 2. Monitor PO intake, wt, labs and skin integrity 3. F/U as low risk in 7 days, 08/07 Expected Outcomes/Goals Expected Outcomes/Goals 1. PO intake to meet at least 75% of nutritional needs. 2. Wt stability, skin to remain intact, labs to approach WNL.
--- NOTE | 2017-07-31 22:46 | Progress Notes ---
DATE: 07/27/2017 PSYCHIATRIC PROGRESS NOTE SUBJECTIVE: Staff was spoken to. The patient is interviewed. Mood is noted to be irritable. Affect is constricted. The patient is still very demanding. Coping skills are noted to be poor. Insight and judgment also noted to be very poor. The patient has been having difficult time to cope with the stress. ASSESSMENT: The patient is still having acute mood swings. PLAN: To continue the patient with the supportive therapy and followup. JOB# [id number]
[2017-08-01] MEDS: Hydrocodone/APAP 10 mg/325 mg Tab PO SCH ×2 (09:26→20:46)
[2017-08-01] MEDS: Potassium Chloride 10 mEq ER Tab PO SCH ×2 (09:26→16:28)
[2017-08-01] MEDS: Multivitamin Tab PO SCH (09:26)
--- NOTE | 2017-08-01 15:46 | General Progress Note ---
Subjective - Review of Systems Service Date: 08/01/17 Subjective: awake, alert nad Objective - Results Result Diagrams: 07/27/17 16:36 07/27/17 16:36 Recent Labs: Laboratory Last Values WBC 12.7 Th/cmm (4.8-10.8) H 07/27/17 16:36 RBC 5.78 Mil/cmm (3.80-5.20) H 07/27/17 16:36 Hgb 14.0 gm/dL (12-16) 07/27/17 16:36 Hct 43.2 % (41.0-60) 07/27/17 16:36 MCV 74.8 fl (81-100) L 07/27/17 16:36 MCH 24.2 pg (27.0-31.0) L 07/27/17 16:36 MCHC Differential 32.3 pg (28.0-36.0) 07/27/17 16:36 RDW 17.0 % (11.5-20.0) 07/27/17 16:36 Plt Count 236 Th/cmm (150-400) 07/27/17 16:36 MPV 8.4 fl 07/27/17 16:36 Band Neutrophils % 0 % (0-10) 07/27/17 16:36 Neutrophils (Manual) 77 % (40-80) 07/27/17 16:36 Lymphocytes 17 % (20-50) L 07/27/17 16:36 Monocytes 5 % (2-10) 07/27/17 16:36 Eosinophils 1 % (0-5) 07/27/17 16:36 Platelet Estimate ADEQUATE (NORMAL) 07/27/17 16:36 Microcytosis 2+ 07/27/17 16:36 Sodium 139 mEq/L (136-145) 07/27/17 16:36 Potassium 4.1 mEq/L (3.5-5.1) 07/27/17 16:36 Chloride 104 mEq/L (98-107) 07/27/17 16:36 Carbon Dioxide 27.0 mEq/L (21.0-31.0) 07/27/17 16:36 Anion Gap 12.1 (7.0-16.0) 07/27/17 16:36 BUN 22 mg/dL (7-25) 07/27/17 16:36 Creatinine 0.6 mg/dL (0.6-1.2) 07/27/17 16:36 Est GFR ( Amer) TNP 07/27/17 16:36 Est GFR (Non-Af Amer) TNP 07/27/17 16:36 BUN/Creatinine Ratio 36.7 07/27/17 16:36 Glucose 98 mg/dL (70-105) 07/27/17 16:36 Hemoglobin A1c % 5.6 % (4.0-6.0) 07/27/17 16:36 Whole Bld Lactic Acid 0.66 mmol/L (0.60-1.99) 07/27/17 16:36 Calcium 9.0 mg/dL (8.6-10.3) 07/27/17 16:36 Total Bilirubin 0.5 mg/dL (0.3-1.0) 07/27/17 16:36 AST 9 U/L (13-39) L 07/27/17 16:36 ALT 9 U/L (7-52) 07/27/17 16:36 Alkaline Phosphatase 83 U/L (34-104) 07/27/17 16:36 Troponin I < 0.01 ng/mL (0.01-0.05) L 07/27/17 16:36 Total Protein 6.5 gm/dL (6.0-8.3) 07/27/17 16:36 Albumin 3.8 gm/dL (3.7-5.3) 07/27/17 16:36 Globulin 2.7 gm/dL 07/27/17 16:36 Albumin/Globulin Ratio 1.4 (1.0-1.8) 07/27/17 16:36 Triglycerides 150 mg/dL (<150) 07/27/17 16:36 Cholesterol 146 mg/dL (<200) 07/27/17 16:36 LDL Cholesterol Direct 92 mg/dL (75-193) 07/27/17 16:36 HDL Cholesterol 25 mg/dL (23-92) 07/27/17 16:36 TSH 0.71 uIU/ml (0.34-5.60) 07/27/17 16:36 Salicylates < 25.0 mg/L (30.0-100.0) L 07/27/17 16:36 Acetaminophen < 10.0 ug/mL (10.0-30.0) L 07/27/17 16:36 Valproic Acid < 10.0 ug/mL (50.0-100.0) L 07/28/17 06:45 Ethyl Alcohol < 10 mg/dL (0-10) 07/27/17 16:36 - Physical Exam Vitals and I&O: Vital Signs Temp 97.9 F 08/01/17 14:00 Pulse 73 08/01/17 14:00 Resp 18 08/01/17 14:00 BP 104/63 08/01/17 14:00 Pulse Ox 96 08/01/17 14:00 Active Medications: Current Medications Acetaminophen (Tylenol) 650 mg PO Q4HR PRN PRN Reason: Fever > 101 Stop: 09/25/17 23:23 Acetaminophen (Tylenol) 325 mg PO Q4HR PRN PRN Reason: Pain (Mild) Stop: 09/25/17 23:23 Acetaminophen (Tylenol) 650 mg PO Q4HR PRN PRN Reason: Pain (Moderate) Stop: 09/26/17 00:00 Acetaminophen/Hydrocodone Bitart ([place] 10 Mg/325 Mg) 1 tab PO Q12HR [facility] Stop: 09/26/17 08:59 Last Admin: 08/01/17 09:26 Dose: 1 tab Alprazolam (Xanax) 0.25 mg PO BID PRN; Protocol PRN Reason: Anxiety Stop: 09/26/17 06:16 Atorvastatin Calcium (Lipitor) 40 mg PO HS [facility] Stop: 09/26/17 20:59 Last Admin: 07/31/17 21:05 Dose: 40 mg Carvedilol (Coreg) 12.5 mg PO BID [facility] Stop: 09/26/17 08:59 Last Admin: 08/01/17 08:09 Dose: Not Given Clopidogrel Bisulfate (Plavix) 75 mg PO DAILY [facility] Stop: 09/26/17 08:59 Last Admin: 08/01/17 09:26 Dose: 75 mg Divalproex Sodium (Depakote Dr) 250 mg PO BID [facility]; Protocol Stop: 09/26/17 08:59 Last Admin: 08/01/17 09:25 Dose: 250 mg Docusate Sodium (Colace) 100 mg PO BID [facility] Stop: 09/26/17 08:59 Last Admin: 08/01/17 09:25 Dose: 100 mg Donepezil HCl (Aricept) 5 mg PO HS [facility] Stop: 09/26/17 20:59 Last Admin: 07/31/17 21:05 Dose: 5 mg Famotidine (Pepcid) 40 mg PO DAILY [facility] Stop: 09/26/17 08:59 Last Admin: 08/01/17 09:26 Dose: 40 mg Furosemide (Lasix) 20 mg PO DAILY [facility] Stop: 09/26/17 08:59 Last Admin: 08/01/17 08:10 Dose: Not Given Ipratropium [place] (Atrovent Neb 0.5mg/2.5ml) 0.5 mg HHN Q4HR PRN PRN Reason: copd Stop: 09/25/17 23:23 Magnesium Hydroxide (Milk Of Magnesia) 30 ml PO BID PRN PRN Reason: Constipation Stop: 09/25/17 23:23 Multivitamins/Vitamin C (Theragran) 1 tab PO DAILY [facility] Stop: 09/26/17 08:59 Last Admin: 08/01/17 09:26 Dose: 1 tab Nitroglycerin (Nitrostat) 0.4 mg SL Q5MIN PRN PRN Reason: Chest Pain Stop: 09/25/17 23:23 Ondansetron HCl (Zofran Odt) 4 mg PO Q4HR PRN PRN Reason: Nausea Stop: 09/25/17 23:23 Potassium Chloride (Klor-Con) 10 meq PO BID [facility] Stop: 09/26/17 08:59 Last Admin: 08/01/17 09:26 Dose: Not Given Quetiapine Fumarate (Seroquel) 25 mg PO HS [facility]; Protocol Stop: 09/27/17 20:59 Last Admin: 07/31/17 21:05 Dose: 25 mg Zolpidem Tartrate (Ambien) 5 mg PO HS PRN PRN Reason: Insomnia Stop: 09/25/17 22:59 Last Admin: 07/28/17 21:49 Dose: 5 mg General: Alert, No acute distress HEENT: Atraumatic Neck: Supple, Thyromegaly Cardiovascular: Regular rate, Normal S1, Normal S2 Lungs: Clear to auscultation Abdomen: Bowel sounds Assessment/Plan - Problem List Patient Problems: All Active Problems Dementia (Acute) F03.90 Dyslipidemia (Acute) E78.5 HTN (hypertension) (Acute) I10 - Plan Plan: as per psych monitor vitals Nutritional Asmnt/Malnutr-PDOC - Dietary Evaluation Malnutrition Findings (Please click <Entered> for more info): Nutritional Asmnt/Malnutrition Start: 07/31/17 15: 07 Text: Status: Complete Freq: Protocol: Document 07/31/17 15:07 LCHENG (Rec: 07/31/17 15:17 [id number]) Nutritional Asmnt/Malnutrition Patient General Information Nutritional Screening Moderate Risk Diagnosis psychosis Pertinent Medical Hx/Surgical Hx HTN, dyslipidemia, dementia Subjective Information Pt seen sitting up in bed at time of visit, lunch tray in front. Pt asked dietitian to get out, refused to talk. Per EMR, PO intake 50-1005, avg 75 %. Current Diet Order/ Nutrition Support regular Pertinent Medications colace, lasix, theragran, kcl, seroquel Pertinent Labs 07/27 nutrition labs WNL Nutritional Hx/Data Height 1.6 m Height (Calculated Centimeters) 160.0 Current Weight (lbs) 74.389 kg Weight (Calculated Kilograms) 74.4 Weight (Calculated Grams) 93865.1 [place] Body Weight 63 Body Mass Index (BMI) 29.0 Weight Status Overweight GI Symptoms GI Symptoms None Last BM 6/2 x 2 Difficult in: None Food Allergies Yes: pepper (genus capsicum) Skin Integrity/Comment: intact Estimated Nutritional Goals Calories/Kcals/Kg 25-30 Kcals Calculated 6731-1078 Protein g/k Protein Calculated 53 Fluid: ml 1325-1590ml (1ml/kcal) Nutritional Problem No current Nutrition Prob Problem NA Malnutrition Alert Is there a minimum of two criteria No selected? Query Text:Check all the applicable criteria. A minimum of two criteria are recommended for diagnosis of either severe or non-severe malnutrition. Malnutrition Related to Morbid Obesity Malnutrition related to morbid obesity No Intervention/Recommendation Comments 1. Continue with regular diet as ordered. 2. Monitor PO intake, wt, labs and skin integrity 3. F/U as low risk in 7 days, 08/07 Expected Outcomes/Goals Expected Outcomes/Goals 1. PO intake to meet at least 75% of nutritional needs. 2. Wt stability, skin to remain intact, labs to approach WNL.
--- NOTE | 2017-08-01 22:02 | Progress Notes ---
DATE: 08/01/2017 SUBJECTIVE: Staff was spoken to. The patient is interviewed. Mood is noted to be irritable. Affect is constricted. The patient's insight and judgment are noted to be still impaired. Impulse control is noted to be limited. The patient has been still having the acute mood swings. The patient is getting easily irritable. No side effects to the medications are noted. The patient is currently on the valproic acid 250 mg twice a day and the patient is on Seroquel 25 mg at bedtime. The patient has been able to tolerate the medications. No side effects to the medications are noted. ASSESSMENT: The patient is still having acute mood swings. PLAN: To continue the patient with the supportive therapy. Encouraged the patient to verbalize the concerns rather than to act out. JOB# [id number]
[2017-08-02] MEDS: Hydrocodone/APAP 10 mg/325 mg Tab PO SCH ×2 (09:26→20:51)
[2017-08-02] MEDS: Potassium Chloride 10 mEq ER Tab PO SCH ×2 (09:27→17:23)
[2017-08-02] MEDS: Multivitamin Tab PO SCH (09:28)
--- NOTE | 2017-08-02 12:23 | General Progress Note ---
Subjective - Review of Systems Service Date: 08/02/17 Subjective: alert and awake patient feeling irritable Objective - Results Result Diagrams: 07/27/17 16:36 07/27/17 16:36 Recent Labs: Laboratory Last Values WBC 12.7 Th/cmm (4.8-10.8) H 07/27/17 16:36 RBC 5.78 Mil/cmm (3.80-5.20) H 07/27/17 16:36 Hgb 14.0 gm/dL (12-16) 07/27/17 16:36 Hct 43.2 % (41.0-60) 07/27/17 16:36 MCV 74.8 fl (81-100) L 07/27/17 16:36 MCH 24.2 pg (27.0-31.0) L 07/27/17 16:36 MCHC Differential 32.3 pg (28.0-36.0) 07/27/17 16:36 RDW 17.0 % (11.5-20.0) 07/27/17 16:36 Plt Count 236 Th/cmm (150-400) 07/27/17 16:36 MPV 8.4 fl 07/27/17 16:36 Band Neutrophils % 0 % (0-10) 07/27/17 16:36 Neutrophils (Manual) 77 % (40-80) 07/27/17 16:36 Lymphocytes 17 % (20-50) L 07/27/17 16:36 Monocytes 5 % (2-10) 07/27/17 16:36 Eosinophils 1 % (0-5) 07/27/17 16:36 Platelet Estimate ADEQUATE (NORMAL) 07/27/17 16:36 Microcytosis 2+ 07/27/17 16:36 Sodium 139 mEq/L (136-145) 07/27/17 16:36 Potassium 4.1 mEq/L (3.5-5.1) 07/27/17 16:36 Chloride 104 mEq/L (98-107) 07/27/17 16:36 Carbon Dioxide 27.0 mEq/L (21.0-31.0) 07/27/17 16:36 Anion Gap 12.1 (7.0-16.0) 07/27/17 16:36 BUN 22 mg/dL (7-25) 07/27/17 16:36 Creatinine 0.6 mg/dL (0.6-1.2) 07/27/17 16:36 Est GFR ( Amer) TNP 07/27/17 16:36 Est GFR (Non-Af Amer) TNP 07/27/17 16:36 BUN/Creatinine Ratio 36.7 07/27/17 16:36 Glucose 98 mg/dL (70-105) 07/27/17 16:36 Hemoglobin A1c % 5.6 % (4.0-6.0) 07/27/17 16:36 Whole Bld Lactic Acid 0.66 mmol/L (0.60-1.99) 07/27/17 16:36 Calcium 9.0 mg/dL (8.6-10.3) 07/27/17 16:36 Total Bilirubin 0.5 mg/dL (0.3-1.0) 07/27/17 16:36 AST 9 U/L (13-39) L 07/27/17 16:36 ALT 9 U/L (7-52) 07/27/17 16:36 Alkaline Phosphatase 83 U/L (34-104) 07/27/17 16:36 Troponin I < 0.01 ng/mL (0.01-0.05) L 07/27/17 16:36 Total Protein 6.5 gm/dL (6.0-8.3) 07/27/17 16:36 Albumin 3.8 gm/dL (3.7-5.3) 07/27/17 16:36 Globulin 2.7 gm/dL 07/27/17 16:36 Albumin/Globulin Ratio 1.4 (1.0-1.8) 07/27/17 16:36 Triglycerides 150 mg/dL (<150) 07/27/17 16:36 Cholesterol 146 mg/dL (<200) 07/27/17 16:36 LDL Cholesterol Direct 92 mg/dL (75-193) 07/27/17 16:36 HDL Cholesterol 25 mg/dL (23-92) 07/27/17 16:36 TSH 0.71 uIU/ml (0.34-5.60) 07/27/17 16:36 Salicylates < 25.0 mg/L (30.0-100.0) L 07/27/17 16:36 Acetaminophen < 10.0 ug/mL (10.0-30.0) L 07/27/17 16:36 Valproic Acid < 10.0 ug/mL (50.0-100.0) L 07/28/17 06:45 Ethyl Alcohol < 10 mg/dL (0-10) 07/27/17 16:36 - Physical Exam Vitals and I&O: Vital Signs Temp 98.4 F 08/02/17 07:11 Pulse 69 08/02/17 09:27 Resp 19 08/02/17 07:11 BP 145/83 08/02/17 09:27 Pulse Ox 93 08/02/17 07:11 Intake & Output 08/01/17 08/02/17 08/02/17 18:59 06:59 18:59 Intake Total 900 200 200 Balance 900 200 200 Intake: Oral 900 200 200 Other: # Voids 3 2 2 # Bowel Movements 1 0 Active Medications: Current Medications Acetaminophen (Tylenol) 650 mg PO Q4HR PRN PRN Reason: Fever > 101 Stop: 09/25/17 23:23 Acetaminophen (Tylenol) 325 mg PO Q4HR PRN PRN Reason: Pain (Mild) Stop: 09/25/17 23:23 Acetaminophen (Tylenol) 650 mg PO Q4HR PRN PRN Reason: Pain (Moderate) Stop: 09/26/17 00:00 Acetaminophen/Hydrocodone Bitart ([place] 10 Mg/325 Mg) 1 tab PO Q12HR [facility] Stop: 09/26/17 08:59 Last Admin: 08/02/17 09:26 Dose: 1 tab Alprazolam (Xanax) 0.25 mg PO BID PRN; Protocol PRN Reason: Anxiety Stop: 09/26/17 06:16 Atorvastatin Calcium (Lipitor) 40 mg PO HS [facility] Stop: 09/26/17 20:59 Last Admin: 08/01/17 20:46 Dose: 40 mg Carvedilol (Coreg) 12.5 mg PO BID [facility] Stop: 09/26/17 08:59 Last Admin: 08/02/17 09:27 Dose: 12.5 mg Clopidogrel Bisulfate (Plavix) 75 mg PO DAILY [facility] Stop: 09/26/17 08:59 Last Admin: 08/02/17 09:26 Dose: 75 mg Divalproex Sodium (Depakote Dr) 250 mg PO BID [facility]; Protocol Stop: 09/26/17 08:59 Last Admin: 08/02/17 09:26 Dose: 250 mg Docusate Sodium (Colace) 100 mg PO BID [facility] Stop: 09/26/17 08:59 Last Admin: 08/02/17 09:28 Dose: 100 mg Donepezil HCl (Aricept) 5 mg PO HS [facility] Stop: 09/26/17 20:59 Last Admin: 08/01/17 20:46 Dose: 5 mg Famotidine (Pepcid) 40 mg PO DAILY [facility] Stop: 09/26/17 08:59 Last Admin: 08/02/17 09:26 Dose: 40 mg Furosemide (Lasix) 20 mg PO DAILY [facility] Stop: 09/26/17 08:59 Last Admin: 08/02/17 09:27 Dose: 20 mg Ipratropium [place] (Atrovent Neb 0.5mg/2.5ml) 0.5 mg HHN Q4HR PRN PRN Reason: copd Stop: 09/25/17 23:23 Magnesium Hydroxide (Milk Of Magnesia) 30 ml PO BID PRN PRN Reason: Constipation Stop: 09/25/17 23:23 Multivitamins/Vitamin C (Theragran) 1 tab PO DAILY [facility] Stop: 09/26/17 08:59 Last Admin: 08/02/17 09:28 Dose: 1 tab Nitroglycerin (Nitrostat) 0.4 mg SL Q5MIN PRN PRN Reason: Chest Pain Stop: 09/25/17 23:23 Ondansetron HCl (Zofran Odt) 4 mg PO Q4HR PRN PRN Reason: Nausea Stop: 09/25/17 23:23 Potassium Chloride (Klor-Con) 10 meq PO BID [facility] Stop: 09/26/17 08:59 Last Admin: 08/02/17 09:27 Dose: 10 meq Quetiapine Fumarate (Seroquel) 25 mg PO HS [facility]; Protocol Stop: 09/27/17 20:59 Last Admin: 08/01/17 20:46 Dose: 25 mg Zolpidem Tartrate (Ambien) 5 mg PO HS PRN PRN Reason: Insomnia Stop: 09/25/17 22:59 Last Admin: 07/28/17 21:49 Dose: 5 mg General: Alert, No acute distress HEENT: Atraumatic Neck: Supple, Thyromegaly Cardiovascular: Regular rate, Normal S1, Normal S2 Lungs: Clear to auscultation Abdomen: Bowel sounds Other physical findings: irritable Assessment/Plan - Problem List Patient Problems: All Active Problems Dementia (Acute) F03.90 Dyslipidemia (Acute) E78.5 HTN (hypertension) (Acute) I10 - Plan Plan: as per psych monitor vitals cpm Nutritional Asmnt/Malnutr-PDOC - Dietary Evaluation Malnutrition Findings (Please click <Entered> for more info): Nutritional Asmnt/Malnutrition Start: 07/31/17 15: 07 Text: Status: Complete Freq: Protocol: Document 07/31/17 15:07 LCHENG (Rec: 07/31/17 15:17 [id number]) Nutritional Asmnt/Malnutrition Patient General Information Nutritional Screening Moderate Risk Diagnosis psychosis Pertinent Medical Hx/Surgical Hx HTN, dyslipidemia, dementia Subjective Information Pt seen sitting up in bed at time of visit, lunch tray in front. Pt asked dietitian to get out, refused to talk. Per EMR, PO intake 50-1005, avg 75 %. Current Diet Order/ Nutrition Support regular Pertinent Medications colace, lasix, theragran, kcl, seroquel Pertinent Labs 07/27 nutrition labs WNL Nutritional Hx/Data Height 1.6 m Height (Calculated Centimeters) 160.0 Current Weight (lbs) 74.389 kg Weight (Calculated Kilograms) 74.4 Weight (Calculated Grams) 46757.1 [place] Body Weight 63 Body Mass Index (BMI) 29.0 Weight Status Overweight GI Symptoms GI Symptoms None Last BM 6/2 x 2 Difficult in: None Food Allergies Yes: pepper (genus capsicum) Skin Integrity/Comment: intact Estimated Nutritional Goals Calories/Kcals/Kg 25-30 Kcals Calculated 4058-6807 Protein g/k Protein Calculated 53 Fluid: ml 1325-1590ml (1ml/kcal) Nutritional Problem No current Nutrition Prob Problem NA Malnutrition Alert Is there a minimum of two criteria No selected? Query Text:Check all the applicable criteria. A minimum of two criteria are recommended for diagnosis of either severe or non-severe malnutrition. Malnutrition Related to Morbid Obesity Malnutrition related to morbid obesity No Intervention/Recommendation Comments 1. Continue with regular diet as ordered. 2. Monitor PO intake, wt, labs and skin integrity 3. F/U as low risk in 7 days, 08/07 Expected Outcomes/Goals Expected Outcomes/Goals 1. PO intake to meet at least 75% of nutritional needs. 2. Wt stability, skin to remain intact, labs to approach WNL.
--- NOTE | 2017-08-03 03:10 | Progress Notes ---
DATE: 08/02/2017 SUBJECTIVE: Staff was spoken to. The patient is interviewed. Mood is noted to be irritable. Affect is constricted. Coping skills are noted to be still poor. The patient has been having mood swings, but her aggressive behavior seems to be coming under control. No side effects to the medications are noted. The patient is currently on Seroquel 25 mg at bedtime and Depakote 250 mg twice a day and the patient has been able to tolerate. No side effects to the medications are noted. ASSESSMENT: The patient's mood swings are coming under control. PLAN: To continue the patient with the supportive therapy and followup. JOB# [id number]
[2017-08-03] MEDS: Hydrocodone/APAP 10 mg/325 mg Tab PO SCH ×2 (08:45→22:00)
[2017-08-03] MEDS: Multivitamin Tab PO SCH (08:50)
[2017-08-03] MEDS: Potassium Chloride 10 mEq ER Tab PO SCH ×2 (08:50→16:55)
--- NOTE | 2017-08-03 11:42 | Internal Medicine Prog Note ---
Internal Medicine Subjective - Subjective Service Date: 08/03/17 Patient seen and examined:: with staff Patient is:: awake Per staff patient has:: tolerating meds Internal Medicine Objective - Results Result Diagrams: 07/27/17 16:36 07/27/17 16:36 Recent Labs: Laboratory Last Values WBC 12.7 Th/cmm (4.8-10.8) H 07/27/17 16:36 RBC 5.78 Mil/cmm (3.80-5.20) H 07/27/17 16:36 Hgb 14.0 gm/dL (12-16) 07/27/17 16:36 Hct 43.2 % (41.0-60) 07/27/17 16:36 MCV 74.8 fl (81-100) L 07/27/17 16:36 MCH 24.2 pg (27.0-31.0) L 07/27/17 16:36 MCHC Differential 32.3 pg (28.0-36.0) 07/27/17 16:36 RDW 17.0 % (11.5-20.0) 07/27/17 16:36 Plt Count 236 Th/cmm (150-400) 07/27/17 16:36 MPV 8.4 fl 07/27/17 16:36 Band Neutrophils % 0 % (0-10) 07/27/17 16:36 Neutrophils (Manual) 77 % (40-80) 07/27/17 16:36 Lymphocytes 17 % (20-50) L 07/27/17 16:36 Monocytes 5 % (2-10) 07/27/17 16:36 Eosinophils 1 % (0-5) 07/27/17 16:36 Platelet Estimate ADEQUATE (NORMAL) 07/27/17 16:36 Microcytosis 2+ 07/27/17 16:36 Sodium 139 mEq/L (136-145) 07/27/17 16:36 Potassium 4.1 mEq/L (3.5-5.1) 07/27/17 16:36 Chloride 104 mEq/L (98-107) 07/27/17 16:36 Carbon Dioxide 27.0 mEq/L (21.0-31.0) 07/27/17 16:36 Anion Gap 12.1 (7.0-16.0) 07/27/17 16:36 BUN 22 mg/dL (7-25) 07/27/17 16:36 Creatinine 0.6 mg/dL (0.6-1.2) 07/27/17 16:36 Est GFR ( Amer) TNP 07/27/17 16:36 Est GFR (Non-Af Amer) TNP 07/27/17 16:36 BUN/Creatinine Ratio 36.7 07/27/17 16:36 Glucose 98 mg/dL (70-105) 07/27/17 16:36 Hemoglobin A1c % 5.6 % (4.0-6.0) 07/27/17 16:36 Whole Bld Lactic Acid 0.66 mmol/L (0.60-1.99) 07/27/17 16:36 Calcium 9.0 mg/dL (8.6-10.3) 07/27/17 16:36 Total Bilirubin 0.5 mg/dL (0.3-1.0) 07/27/17 16:36 AST 9 U/L (13-39) L 07/27/17 16:36 ALT 9 U/L (7-52) 07/27/17 16:36 Alkaline Phosphatase 83 U/L (34-104) 07/27/17 16:36 Troponin I < 0.01 ng/mL (0.01-0.05) L 07/27/17 16:36 Total Protein 6.5 gm/dL (6.0-8.3) 07/27/17 16:36 Albumin 3.8 gm/dL (3.7-5.3) 07/27/17 16:36 Globulin 2.7 gm/dL 07/27/17 16:36 Albumin/Globulin Ratio 1.4 (1.0-1.8) 07/27/17 16:36 Triglycerides 150 mg/dL (<150) 07/27/17 16:36 Cholesterol 146 mg/dL (<200) 07/27/17 16:36 LDL Cholesterol Direct 92 mg/dL (75-193) 07/27/17 16:36 HDL Cholesterol 25 mg/dL (23-92) 07/27/17 16:36 TSH 0.71 uIU/ml (0.34-5.60) 07/27/17 16:36 Salicylates < 25.0 mg/L (30.0-100.0) L 07/27/17 16:36 Acetaminophen < 10.0 ug/mL (10.0-30.0) L 07/27/17 16:36 Valproic Acid < 10.0 ug/mL (50.0-100.0) L 07/28/17 06:45 Ethyl Alcohol < 10 mg/dL (0-10) 07/27/17 16:36 RPR NONREACTIVE (NONREACTIVE) 07/27/17 16:36 - Physical Exam Vitals and I&O: Vital Signs Temp 98.3 F 08/03/17 04:58 Pulse 69 08/03/17 08:50 Resp 18 08/03/17 04:58 BP 122/66 08/03/17 08:50 Pulse Ox 98 08/03/17 04:58 Intake & Output 08/02/17 08/03/17 08/03/17 18:59 06:59 18:59 Intake Total 200 480 Balance 200 480 Intake: Oral 200 480 Other: # Voids 2 2 # Bowel Movements 0 Active Medications: Current Medications Acetaminophen (Tylenol) 650 mg PO Q4HR PRN PRN Reason: Fever > 101 Stop: 09/25/17 23:23 Acetaminophen (Tylenol) 325 mg PO Q4HR PRN PRN Reason: Pain (Mild) Stop: 09/25/17 23:23 Acetaminophen (Tylenol) 650 mg PO Q4HR PRN PRN Reason: Pain (Moderate) Stop: 09/26/17 00:00 Acetaminophen/Hydrocodone Bitart ([place] 10 Mg/325 Mg) 1 tab PO Q12HR [facility] Stop: 09/26/17 08:59 Last Admin: 08/03/17 08:45 Dose: 1 tab Alprazolam (Xanax) 0.25 mg PO BID PRN; Protocol PRN Reason: Anxiety Stop: 09/26/17 06:16 Atorvastatin Calcium (Lipitor) 40 mg PO HS [facility] Stop: 09/26/17 20:59 Last Admin: 08/02/17 20:50 Dose: 40 mg Carvedilol (Coreg) 12.5 mg PO BID [facility] Stop: 09/26/17 08:59 Last Admin: 08/03/17 08:50 Dose: 12.5 mg Clopidogrel Bisulfate (Plavix) 75 mg PO DAILY [facility] Stop: 09/26/17 08:59 Last Admin: 08/03/17 08:45 Dose: 75 mg Divalproex Sodium (Depakote Dr) 250 mg PO BID [facility]; Protocol Stop: 09/26/17 08:59 Last Admin: 08/03/17 08:50 Dose: 250 mg Docusate Sodium (Colace) 100 mg PO BID [facility] Stop: 09/26/17 08:59 Last Admin: 08/03/17 08:49 Dose: 100 mg Donepezil HCl (Aricept) 5 mg PO HS [facility] Stop: 09/26/17 20:59 Last Admin: 08/02/17 20:53 Dose: 5 mg Famotidine (Pepcid) 40 mg PO DAILY [facility] Stop: 09/26/17 08:59 Last Admin: 08/03/17 08:46 Dose: 40 mg Furosemide (Lasix) 20 mg PO DAILY [facility] Stop: 09/26/17 08:59 Last Admin: 08/03/17 08:45 Dose: 20 mg Ipratropium [place] (Atrovent Neb 0.5mg/2.5ml) 0.5 mg HHN Q4HR PRN PRN Reason: copd Stop: 09/25/17 23:23 Magnesium Hydroxide (Milk Of Magnesia) 30 ml PO BID PRN PRN Reason: Constipation Stop: 09/25/17 23:23 Multivitamins/Vitamin C (Theragran) 1 tab PO DAILY [facility] Stop: 09/26/17 08:59 Last Admin: 08/03/17 08:50 Dose: 1 tab Nitroglycerin (Nitrostat) 0.4 mg SL Q5MIN PRN PRN Reason: Chest Pain Stop: 09/25/17 23:23 Ondansetron HCl (Zofran Odt) 4 mg PO Q4HR PRN PRN Reason: Nausea Stop: 09/25/17 23:23 Potassium Chloride (Klor-Con) 10 meq PO BID [facility] Stop: 09/26/17 08:59 Last Admin: 08/03/17 08:50 Dose: 10 meq Quetiapine Fumarate (Seroquel) 25 mg PO HS [facility]; Protocol Stop: 09/27/17 20:59 Last Admin: 08/02/17 20:51 Dose: 25 mg Zolpidem Tartrate (Ambien) 5 mg PO HS PRN PRN Reason: Insomnia Stop: 09/25/17 22:59 Last Admin: 07/28/17 21:49 Dose: 5 mg General: alert HEENT: NC/AT, PERRLA Neck: Supple Lungs: CTAB Cardiovascular: RRR, without murmur Abdomen: soft, non-tender, non-distended Neurological: no change Internal Medicine Assmt/Plan - Assessment Assessment: HTN, Dyslipidemia, Dementia - Plan Plan: monitor Bp closely continue current plan of care Nutritional Asmnt/Malnutr-PDOC - Dietary Evaluation Malnutrition Findings (Please click <Entered> for more info): Nutritional Asmnt/Malnutrition Start: 07/31/17 15: 07 Text: Status: Complete Freq: Protocol: Document 07/31/17 15:07 LCHENG (Rec: 07/31/17 15:17 LCHENG [email or web address]) Nutritional Asmnt/Malnutrition Patient General Information Nutritional Screening Moderate Risk Diagnosis psychosis Pertinent Medical Hx/Surgical Hx HTN, dyslipidemia, dementia Subjective Information Pt seen sitting up in bed at time of visit, lunch tray in front. Pt asked dietitian to get out, refused to talk. Per EMR, PO intake 50-1005, avg 75 %. Current Diet Order/ Nutrition Support regular Pertinent Medications colace, lasix, theragran, kcl, seroquel Pertinent Labs 6/ nutrition labs WNL Nutritional Hx/Data Height 5 ft 3 in Height (Calculated Centimeters) 160.0 Current Weight (lbs) 164 lb Weight (Calculated Kilograms) 74.4 Weight (Calculated Grams) 95404.1 [place] Body Weight 63 Body Mass Index (BMI) 29.0 Weight Status Overweight GI Symptoms GI Symptoms None Last BM 6/2 x 2 Difficult in: None Food Allergies Yes: pepper (genus capsicum) Skin Integrity/Comment: intact Estimated Nutritional Goals Calories/Kcals/Kg 25-30 Kcals Calculated 0263-3622 Protein g/k Protein Calculated 53 Fluid: ml 1325-1590ml (1ml/kcal) Nutritional Problem No current Nutrition Prob Problem NA Malnutrition Alert Is there a minimum of two criteria No selected? Query Text:Check all the applicable criteria. A minimum of two criteria are recommended for diagnosis of either severe or non-severe malnutrition. Malnutrition Related to Morbid Obesity Malnutrition related to morbid obesity No Intervention/Recommendation Comments 1. Continue with regular diet as ordered. 2. Monitor PO intake, wt, labs and skin integrity 3. F/U as low risk in 7 days, 08/07 Expected Outcomes/Goals Expected Outcomes/Goals 1. PO intake to meet at least 75% of nutritional needs. 2. Wt stability, skin to remain intact, labs to approach WNL.
--- NOTE | 2017-08-04 02:03 | Progress Notes ---
DATE: 08/03/2017 SUBJECTIVE: Staff was spoken to. The patient is interviewed. Mood is noted to be irritable. Affect is constricted. Coping skills are noted to be still poor. The patient has been screaming and yelling. The patient is reporting that she is in severe pain. No side effects to the medications are noted. PLAN: The patient is currently being maintained on the mood stabilizer that is the Depakote and the patient is also getting 25 mg of the Seroquel at night time. The patient is going to be closely monitored. I encouraged to verbalize the concerns rather than to act out. JOB# [id number]
[2017-08-04] MEDS: Multivitamin Tab PO SCH (09:32)
[2017-08-04] MEDS: Hydrocodone/APAP 10 mg/325 mg Tab PO SCH ×2 (09:32→20:35)
[2017-08-04] MEDS: Potassium Chloride 10 mEq ER Tab PO SCH ×2 (09:32→17:01)
--- NOTE | 2017-08-04 13:43 | Progress Notes ---
DATE: 08/04/2017 PSYCHIATRIC PROGRESS NOTE SUBJECTIVE: Staff was spoken to. The patient is interviewed. Mood is noted to be irritable. Affect is constricted. The patient is verbally abusive towards the staff still. Insight and judgment are noted to be still impaired. The patient is lying down, most of the time in the bed and we have been giving her the Seroquel and Depakote. The patient has been able to tolerate. No side effects to the medications are noted. ASSESSMENT: The patient is still impulsive. PLAN: To continue the patient with the supportive therapy and followup. JOB# [id number]
--- NOTE | 2017-08-04 18:11 | Progress Notes ---
DATE: 08/04/2017 DATE OF SERVICE: 08/04/2017 SUBJECTIVE: The patient was seen in her room, lying in the bed. The patient was asleep but easily arousable. The patient appears to be guarded and irritable at this time. Otherwise, the patient is in no acute distress. OBJECTIVE: VITAL SIGNS: Temperature 97.8, heart rate 63, blood pressure 113/78, respiration 19, 98% on room air. HEENT: Head is atraumatic and normocephalic. Eyes: Bilateral conjunctivae are clear. Bilateral pupils are equally round and reactive. NECK: Supple. No JVD. CARDIOVASCULAR: S1 and S2, without murmur. PULMONARY: Clear to auscultation. GASTROINTESTINAL: Soft and nontender without guarding. Positive bowel sounds. MUSCULOSKELETAL: No clubbing. No cyanosis noted. ASSESSMENT: 1. Bipolar disorder. 2. Hypertension. 3. Hyperlipidemia. PLAN: We will keep the patient Inpatient Psychiatric Unit. We will follow up with the psychiatrist to monitor the patient's condition and behavior. Treatment plans were discussed with the patient's nurse. Treatment plans were discussed with Dr. Jacinto. JOB# [id number]
[2017-08-05] MEDS: Hydrocodone/APAP 10 mg/325 mg Tab PO SCH ×2 (08:51→20:59)
[2017-08-05] MEDS: Multivitamin Tab PO SCH (08:51)
[2017-08-05] MEDS: Potassium Chloride 10 mEq ER Tab PO SCH ×2 (08:52→17:30)
--- NOTE | 2017-08-05 10:44 | General Progress Note ---
Subjective - Review of Systems Service Date: 08/05/17 Subjective: alert no distress Objective - Results Result Diagrams: 07/27/17 16:36 07/27/17 16:36 Recent Labs: Laboratory Last Values WBC 12.7 Th/cmm (4.8-10.8) H 07/27/17 16:36 RBC 5.78 Mil/cmm (3.80-5.20) H 07/27/17 16:36 Hgb 14.0 gm/dL (12-16) 07/27/17 16:36 Hct 43.2 % (41.0-60) 07/27/17 16:36 MCV 74.8 fl (81-100) L 07/27/17 16:36 MCH 24.2 pg (27.0-31.0) L 07/27/17 16:36 MCHC Differential 32.3 pg (28.0-36.0) 07/27/17 16:36 RDW 17.0 % (11.5-20.0) 07/27/17 16:36 Plt Count 236 Th/cmm (150-400) 07/27/17 16:36 MPV 8.4 fl 07/27/17 16:36 Band Neutrophils % 0 % (0-10) 07/27/17 16:36 Neutrophils (Manual) 77 % (40-80) 07/27/17 16:36 Lymphocytes 17 % (20-50) L 07/27/17 16:36 Monocytes 5 % (2-10) 07/27/17 16:36 Eosinophils 1 % (0-5) 07/27/17 16:36 Platelet Estimate ADEQUATE (NORMAL) 07/27/17 16:36 Microcytosis 2+ 07/27/17 16:36 Sodium 139 mEq/L (136-145) 07/27/17 16:36 Potassium 4.1 mEq/L (3.5-5.1) 07/27/17 16:36 Chloride 104 mEq/L (98-107) 07/27/17 16:36 Carbon Dioxide 27.0 mEq/L (21.0-31.0) 07/27/17 16:36 Anion Gap 12.1 (7.0-16.0) 07/27/17 16:36 BUN 22 mg/dL (7-25) 07/27/17 16:36 Creatinine 0.6 mg/dL (0.6-1.2) 07/27/17 16:36 Est GFR ( Amer) TNP 07/27/17 16:36 Est GFR (Non-Af Amer) TNP 07/27/17 16:36 BUN/Creatinine Ratio 36.7 07/27/17 16:36 Glucose 98 mg/dL (70-105) 07/27/17 16:36 Hemoglobin A1c % 5.6 % (4.0-6.0) 07/27/17 16:36 Whole Bld Lactic Acid 0.66 mmol/L (0.60-1.99) 07/27/17 16:36 Calcium 9.0 mg/dL (8.6-10.3) 07/27/17 16:36 Total Bilirubin 0.5 mg/dL (0.3-1.0) 07/27/17 16:36 AST 9 U/L (13-39) L 07/27/17 16:36 ALT 9 U/L (7-52) 07/27/17 16:36 Alkaline Phosphatase 83 U/L (34-104) 07/27/17 16:36 Troponin I < 0.01 ng/mL (0.01-0.05) L 07/27/17 16:36 Total Protein 6.5 gm/dL (6.0-8.3) 07/27/17 16:36 Albumin 3.8 gm/dL (3.7-5.3) 07/27/17 16:36 Globulin 2.7 gm/dL 07/27/17 16:36 Albumin/Globulin Ratio 1.4 (1.0-1.8) 07/27/17 16:36 Triglycerides 150 mg/dL (<150) 07/27/17 16:36 Cholesterol 146 mg/dL (<200) 07/27/17 16:36 LDL Cholesterol Direct 92 mg/dL (75-193) 07/27/17 16:36 HDL Cholesterol 25 mg/dL (23-92) 07/27/17 16:36 TSH 0.71 uIU/ml (0.34-5.60) 07/27/17 16:36 Salicylates < 25.0 mg/L (30.0-100.0) L 07/27/17 16:36 Acetaminophen < 10.0 ug/mL (10.0-30.0) L 07/27/17 16:36 Valproic Acid < 10.0 ug/mL (50.0-100.0) L 07/28/17 06:45 Ethyl Alcohol < 10 mg/dL (0-10) 07/27/17 16:36 RPR NONREACTIVE (NONREACTIVE) 07/27/17 16:36 - Physical Exam Vitals and I&O: Vital Signs Temp 99.0 F 08/04/17 17:03 Pulse 60 08/05/17 08:52 Resp 19 08/04/17 17:03 BP 148/70 08/05/17 08:52 Pulse Ox 96 08/04/17 17:03 Intake & Output 08/04/17 08/05/17 08/05/17 18:59 06:59 18:59 Intake Total 1500 Balance 1500 Intake: Oral 1500 Other: # Voids 4 # Bowel Movements 1 Active Medications: Current Medications Acetaminophen (Tylenol) 650 mg PO Q4HR PRN PRN Reason: Fever > 101 Stop: 09/25/17 23:23 Acetaminophen (Tylenol) 325 mg PO Q4HR PRN PRN Reason: Pain (Mild) Stop: 09/25/17 23:23 Acetaminophen (Tylenol) 650 mg PO Q4HR PRN PRN Reason: Pain (Moderate) Stop: 09/26/17 00:00 Acetaminophen/Hydrocodone Bitart ([place] 10 Mg/325 Mg) 1 tab PO Q12HR [facility] Stop: 09/26/17 08:59 Last Admin: 08/05/17 08:51 Dose: 1 tab Alprazolam (Xanax) 0.25 mg PO BID PRN; Protocol PRN Reason: Anxiety Stop: 09/26/17 06:16 Atorvastatin Calcium (Lipitor) 40 mg PO HS [facility] Stop: 09/26/17 20:59 Last Admin: 08/04/17 20:34 Dose: 40 mg Carvedilol (Coreg) 12.5 mg PO BID [facility] Stop: 09/26/17 08:59 Last Admin: 08/05/17 08:52 Dose: 12.5 mg Clopidogrel Bisulfate (Plavix) 75 mg PO DAILY [facility] Stop: 09/26/17 08:59 Last Admin: 08/05/17 08:51 Dose: 75 mg Divalproex Sodium (Depakote Dr) 250 mg PO BID [facility]; Protocol Stop: 09/26/17 08:59 Last Admin: 08/05/17 08:52 Dose: 250 mg Docusate Sodium (Colace) 100 mg PO BID [facility] Stop: 09/26/17 08:59 Last Admin: 08/05/17 08:51 Dose: 100 mg Donepezil HCl (Aricept) 5 mg PO HS [facility] Stop: 09/26/17 20:59 Last Admin: 08/04/17 20:35 Dose: 5 mg Famotidine (Pepcid) 40 mg PO DAILY [facility] Stop: 09/26/17 08:59 Last Admin: 08/05/17 08:51 Dose: 40 mg Furosemide (Lasix) 20 mg PO DAILY [facility] Stop: 09/26/17 08:59 Last Admin: 08/05/17 08:52 Dose: 20 mg Ipratropium [place] (Atrovent Neb 0.5mg/2.5ml) 0.5 mg HHN Q4HR PRN PRN Reason: copd Stop: 09/25/17 23:23 Magnesium Hydroxide (Milk Of Magnesia) 30 ml PO BID PRN PRN Reason: Constipation Stop: 09/25/17 23:23 Multivitamins/Vitamin C (Theragran) 1 tab PO DAILY [facility] Stop: 09/26/17 08:59 Last Admin: 08/05/17 08:51 Dose: 1 tab Nitroglycerin (Nitrostat) 0.4 mg SL Q5MIN PRN PRN Reason: Chest Pain Stop: 09/25/17 23:23 Ondansetron HCl (Zofran Odt) 4 mg PO Q4HR PRN PRN Reason: Nausea Stop: 09/25/17 23:23 Potassium Chloride (Klor-Con) 10 meq PO BID [facility] Stop: 09/26/17 08:59 Last Admin: 08/05/17 08:52 Dose: 10 meq Quetiapine Fumarate (Seroquel) 25 mg PO HS [facility]; Protocol Stop: 09/27/17 20:59 Last Admin: 08/04/17 20:35 Dose: 25 mg Zolpidem Tartrate (Ambien) 5 mg PO HS PRN PRN Reason: Insomnia Stop: 09/25/17 22:59 Last Admin: 07/28/17 21:49 Dose: 5 mg General: Alert, No acute distress HEENT: Atraumatic Neck: Supple, Thyromegaly Cardiovascular: Regular rate, Normal S1, Normal S2 Lungs: Clear to auscultation Abdomen: Bowel sounds Assessment/Plan - Problem List Patient Problems: All Active Problems Dementia (Acute) F03.90 Dyslipidemia (Acute) E78.5 HTN (hypertension) (Acute) I10 - Plan Plan: as per psych monitor vitals cpm Nutritional Asmnt/Malnutr-PDOC - Dietary Evaluation Malnutrition Findings (Please click <Entered> for more info): Nutritional Asmnt/Malnutrition Start: 07/31/17 15: 07 Text: Status: Complete Freq: Protocol: Document 07/31/17 15:07 LCHENG (Rec: 07/31/17 15:17 LCHENG [email or web address]) Nutritional Asmnt/Malnutrition Patient General Information Nutritional Screening Moderate Risk Diagnosis psychosis Pertinent Medical Hx/Surgical Hx HTN, dyslipidemia, dementia Subjective Information Pt seen sitting up in bed at time of visit, lunch tray in front. Pt asked dietitian to get out, refused to talk. Per EMR, PO intake 50-1005, avg 75 %. Current Diet Order/ Nutrition Support regular Pertinent Medications colace, lasix, theragran, kcl, seroquel Pertinent Labs 07/27 nutrition labs WNL Nutritional Hx/Data Height 1.6 m Height (Calculated Centimeters) 160.0 Current Weight (lbs) 74.389 kg Weight (Calculated Kilograms) 74.4 Weight (Calculated Grams) 37025.1 [place] Body Weight 63 Body Mass Index (BMI) 29.0 Weight Status Overweight GI Symptoms GI Symptoms None Last BM 6/2 x 2 Difficult in: None Food Allergies Yes: pepper (genus capsicum) Skin Integrity/Comment: intact Estimated Nutritional Goals Calories/Kcals/Kg 25-30 Kcals Calculated 8284-8785 Protein g/k Protein Calculated 53 Fluid: ml 1325-1590ml (1ml/kcal) Nutritional Problem No current Nutrition Prob Problem NA Malnutrition Alert Is there a minimum of two criteria No selected? Query Text:Check all the applicable criteria. A minimum of two criteria are recommended for diagnosis of either severe or non-severe malnutrition. Malnutrition Related to Morbid Obesity Malnutrition related to morbid obesity No Intervention/Recommendation Comments 1. Continue with regular diet as ordered. 2. Monitor PO intake, wt, labs and skin integrity 3. F/U as low risk in 7 days, 08/07 Expected Outcomes/Goals Expected Outcomes/Goals 1. PO intake to meet at least 75% of nutritional needs. 2. Wt stability, skin to remain intact, labs to approach WNL.
--- NOTE | 2017-08-05 18:01 | Progress Notes ---
DATE: 08/05/2017 PSYCHIATRIC PROGRESS NOTE SUBJECTIVE: Staff was spoken to. The patient is interviewed. Mood is noted to be anxious. The patient is less irritable, but coping skills are noted to be a major concern with this patient. The patient has been very demanding. No side effects to the medications are noted. The patient has been able to tolerate the medication. ASSESSMENT: The patient is still having mood swings. PLAN: To continue the patient with the supportive therapy and I encouraged the patient to verbalize the concerns rather than to act out. JOB# [id number]
[2017-08-06] MEDS: Hydrocodone/APAP 10 mg/325 mg Tab PO SCH (08:56)
[2017-08-06] MEDS: Multivitamin Tab PO SCH (08:56)
[2017-08-06] MEDS: Potassium Chloride 10 mEq ER Tab PO SCH (08:56)
--- NOTE | 2017-08-06 14:59 | General Progress Note ---
Subjective - Review of Systems Service Date: 08/06/17 Subjective: awake and alert no distress Objective - Results Result Diagrams: 07/27/17 16:36 07/27/17 16:36 Recent Labs: Laboratory Last Values WBC 12.7 Th/cmm (4.8-10.8) H 07/27/17 16:36 RBC 5.78 Mil/cmm (3.80-5.20) H 07/27/17 16:36 Hgb 14.0 gm/dL (12-16) 07/27/17 16:36 Hct 43.2 % (41.0-60) 07/27/17 16:36 MCV 74.8 fl (81-100) L 07/27/17 16:36 MCH 24.2 pg (27.0-31.0) L 07/27/17 16:36 MCHC Differential 32.3 pg (28.0-36.0) 07/27/17 16:36 RDW 17.0 % (11.5-20.0) 07/27/17 16:36 Plt Count 236 Th/cmm (150-400) 07/27/17 16:36 MPV 8.4 fl 07/27/17 16:36 Band Neutrophils % 0 % (0-10) 07/27/17 16:36 Neutrophils (Manual) 77 % (40-80) 07/27/17 16:36 Lymphocytes 17 % (20-50) L 07/27/17 16:36 Monocytes 5 % (2-10) 07/27/17 16:36 Eosinophils 1 % (0-5) 07/27/17 16:36 Platelet Estimate ADEQUATE (NORMAL) 07/27/17 16:36 Microcytosis 2+ 07/27/17 16:36 Sodium 139 mEq/L (136-145) 07/27/17 16:36 Potassium 4.1 mEq/L (3.5-5.1) 07/27/17 16:36 Chloride 104 mEq/L (98-107) 07/27/17 16:36 Carbon Dioxide 27.0 mEq/L (21.0-31.0) 07/27/17 16:36 Anion Gap 12.1 (7.0-16.0) 07/27/17 16:36 BUN 22 mg/dL (7-25) 07/27/17 16:36 Creatinine 0.6 mg/dL (0.6-1.2) 07/27/17 16:36 Est GFR ( Amer) TNP 07/27/17 16:36 Est GFR (Non-Af Amer) TNP 07/27/17 16:36 BUN/Creatinine Ratio 36.7 07/27/17 16:36 Glucose 98 mg/dL (70-105) 07/27/17 16:36 Hemoglobin A1c % 5.6 % (4.0-6.0) 07/27/17 16:36 Whole Bld Lactic Acid 0.66 mmol/L (0.60-1.99) 07/27/17 16:36 Calcium 9.0 mg/dL (8.6-10.3) 07/27/17 16:36 Total Bilirubin 0.5 mg/dL (0.3-1.0) 07/27/17 16:36 AST 9 U/L (13-39) L 07/27/17 16:36 ALT 9 U/L (7-52) 07/27/17 16:36 Alkaline Phosphatase 83 U/L (34-104) 07/27/17 16:36 Troponin I < 0.01 ng/mL (0.01-0.05) L 07/27/17 16:36 Total Protein 6.5 gm/dL (6.0-8.3) 07/27/17 16:36 Albumin 3.8 gm/dL (3.7-5.3) 07/27/17 16:36 Globulin 2.7 gm/dL 07/27/17 16:36 Albumin/Globulin Ratio 1.4 (1.0-1.8) 07/27/17 16:36 Triglycerides 150 mg/dL (<150) 07/27/17 16:36 Cholesterol 146 mg/dL (<200) 07/27/17 16:36 LDL Cholesterol Direct 92 mg/dL (75-193) 07/27/17 16:36 HDL Cholesterol 25 mg/dL (23-92) 07/27/17 16:36 TSH 0.71 uIU/ml (0.34-5.60) 07/27/17 16:36 Salicylates < 25.0 mg/L (30.0-100.0) L 07/27/17 16:36 Acetaminophen < 10.0 ug/mL (10.0-30.0) L 07/27/17 16:36 Valproic Acid < 10.0 ug/mL (50.0-100.0) L 07/28/17 06:45 Ethyl Alcohol < 10 mg/dL (0-10) 07/27/17 16:36 RPR NONREACTIVE (NONREACTIVE) 07/27/17 16:36 - Physical Exam Vitals and I&O: Vital Signs Temp 98.4 F 08/06/17 05:45 Pulse 61 08/06/17 08:57 Resp 18 08/06/17 05:45 BP 140/69 08/06/17 08:59 Pulse Ox 94 08/06/17 05:45 Intake & Output 08/05/17 08/06/17 08/06/17 18:59 06:59 18:59 Intake Total 1200 240 Balance 1200 240 Intake: Oral 1200 240 Other: # Voids 3 2 # Bowel Movements 0 Active Medications: Current Medications Acetaminophen (Tylenol) 650 mg PO Q4HR PRN PRN Reason: Fever > 101 Stop: 09/25/17 23:23 Acetaminophen (Tylenol) 325 mg PO Q4HR PRN PRN Reason: Pain (Mild) Stop: 09/25/17 23:23 Acetaminophen (Tylenol) 650 mg PO Q4HR PRN PRN Reason: Pain (Moderate) Stop: 09/26/17 00:00 Acetaminophen/Hydrocodone Bitart ([place] 10 Mg/325 Mg) 1 tab PO Q12HR [facility] Stop: 09/26/17 08:59 Last Admin: 08/06/17 08:56 Dose: 1 tab Alprazolam (Xanax) 0.25 mg PO BID PRN; Protocol PRN Reason: Anxiety Stop: 09/26/17 06:16 Atorvastatin Calcium (Lipitor) 40 mg PO HS [facility] Stop: 09/26/17 20:59 Last Admin: 08/05/17 20:58 Dose: 40 mg Carvedilol (Coreg) 12.5 mg PO BID [facility] Stop: 09/26/17 08:59 Last Admin: 08/06/17 08:57 Dose: 12.5 mg Clopidogrel Bisulfate (Plavix) 75 mg PO DAILY [facility] Stop: 09/26/17 08:59 Last Admin: 08/06/17 08:59 Dose: 75 mg Divalproex Sodium (Depakote Dr) 250 mg PO BID [facility]; Protocol Stop: 09/26/17 08:59 Last Admin: 08/06/17 08:58 Dose: 250 mg Docusate Sodium (Colace) 100 mg PO BID [facility] Stop: 09/26/17 08:59 Last Admin: 08/06/17 08:57 Dose: 100 mg Donepezil HCl (Aricept) 5 mg PO HS [facility] Stop: 09/26/17 20:59 Last Admin: 08/05/17 20:59 Dose: 5 mg Famotidine (Pepcid) 40 mg PO DAILY [facility] Stop: 09/26/17 08:59 Last Admin: 08/06/17 09:00 Dose: 40 mg Furosemide (Lasix) 20 mg PO DAILY [facility] Stop: 09/26/17 08:59 Last Admin: 08/06/17 08:59 Dose: 20 mg Ipratropium [place] (Atrovent Neb 0.5mg/2.5ml) 0.5 mg HHN Q4HR PRN PRN Reason: copd Stop: 09/25/17 23:23 Magnesium Hydroxide (Milk Of Magnesia) 30 ml PO BID PRN PRN Reason: Constipation Stop: 09/25/17 23:23 Multivitamins/Vitamin C (Theragran) 1 tab PO DAILY [facility] Stop: 09/26/17 08:59 Last Admin: 08/06/17 08:56 Dose: 1 tab Nitroglycerin (Nitrostat) 0.4 mg SL Q5MIN PRN PRN Reason: Chest Pain Stop: 09/25/17 23:23 Ondansetron HCl (Zofran Odt) 4 mg PO Q4HR PRN PRN Reason: Nausea Stop: 09/25/17 23:23 Potassium Chloride (Klor-Con) 10 meq PO BID [facility] Stop: 09/26/17 08:59 Last Admin: 08/06/17 08:56 Dose: 10 meq Quetiapine Fumarate (Seroquel) 25 mg PO HS [facility]; Protocol Stop: 09/27/17 20:59 Last Admin: 08/05/17 20:59 Dose: 25 mg Zolpidem Tartrate (Ambien) 5 mg PO HS PRN PRN Reason: Insomnia Stop: 09/25/17 22:59 Last Admin: 07/28/17 21:49 Dose: 5 mg General: Alert, No acute distress HEENT: Atraumatic Neck: Supple, Thyromegaly Cardiovascular: Regular rate, Normal S1, Normal S2 Lungs: Clear to auscultation Abdomen: Bowel sounds Extremities: no Clubbing, no Cyanosis Neurological: Normal gait Skin: no Rash, no Breakdown, no Significant lesion, no Other Assessment/Plan - Problem List Patient Problems: All Active Problems Dementia (Acute) F03.90 Dyslipidemia (Acute) E78.5 HTN (hypertension) (Acute) I10 - Plan Plan: as per psych cpm monitor vitals Nutritional Asmnt/Malnutr-PDOC - Dietary Evaluation Malnutrition Findings (Please click <Entered> for more info): Nutritional Asmnt/Malnutrition Start: 07/31/17 15: 07 Text: Status: Complete Freq: Protocol: Document 07/31/17 15:07 [email or web address] (Rec: 07/31/17 15:17 [email or web address] [id number]) Nutritional Asmnt/Malnutrition Patient General Information Nutritional Screening Moderate Risk Diagnosis psychosis Pertinent Medical Hx/Surgical Hx HTN, dyslipidemia, dementia Subjective Information Pt seen sitting up in bed at time of visit, lunch tray in front. Pt asked dietitian to get out, refused to talk. Per EMR, PO intake 50-1005, avg 75 %. Current Diet Order/ Nutrition Support regular Pertinent Medications colace, lasix, theragran, kcl, seroquel Pertinent Labs 6/1 nutrition labs WNL Nutritional Hx/Data Height 1.6 m Height (Calculated Centimeters) 160.0 Current Weight (lbs) 74.389 kg Weight (Calculated Kilograms) 74.4 Weight (Calculated Grams) 15778.1 [place] Body Weight 63 Body Mass Index (BMI) 29.0 Weight Status Overweight GI Symptoms GI Symptoms None Last BM 6/2 x 2 Difficult in: None Food Allergies Yes: pepper (genus capsicum) Skin Integrity/Comment: intact Estimated Nutritional Goals Calories/Kcals/Kg 25-30 Kcals Calculated 7371-1223 Protein g/k Protein Calculated 53 Fluid: ml 1325-1590ml (1ml/kcal) Nutritional Problem No current Nutrition Prob Problem NA Malnutrition Alert Is there a minimum of two criteria No selected? Query Text:Check all the applicable criteria. A minimum of two criteria are recommended for diagnosis of either severe or non-severe malnutrition. Malnutrition Related to Morbid Obesity Malnutrition related to morbid obesity No Intervention/Recommendation Comments 1. Continue with regular diet as ordered. 2. Monitor PO intake, wt, labs and skin integrity 3. F/U as low risk in 7 days, 08/07 Expected Outcomes/Goals Expected Outcomes/Goals 1. PO intake to meet at least 75% of nutritional needs. 2. Wt stability, skin to remain intact, labs to approach WNL.
--- NOTE | 2017-08-06 20:42 | Progress Notes ---
DATE: 08/06/2017 SUBJECTIVE: Staff was spoken to. The patient is interviewed. Mood is noted to be less irritable. Affect is appropriate. The patient is not presenting with any threats to harm self or others. Coping skills are noted to be improving. ASSESSMENT: The patient is stabilizing. PLAN: To discharge the patient today for followup on outpatient basis. JOB# [id number]
== END 2017-08-06 15:15 | DRG 885 ==
LOC: ER 16:07 → GERO2 18:29
PROVIDERS: ADMIT Psychiatry & Neurology Psychiatry; ATTEND Psychiatry & Neurology Psychiatry
DX: F31.60 Bipolar disorder, current episode mixed, unspecified (principal); I10 Essential (primary) hypertension; E78.5 Hyperlipidemia, unspecified; F29 Unspecified psychosis not due to a substance or known physiological condition; F03.90 Unspecified dementia, unspecified severity, without behavioral disturbance, psychotic disturbance, mood disturbance, and anxiety; Z82.49 Family history of ischemic heart disease and other diseases of the circulatory system
CPT/HCPCS: 36415-UA; 80053-TC; 80061-TC; 80164-TC; 80320-TC; 80329-TC; 83036-90; 83605; 84443-TC; 84484-TC; 85007-TC; 85025-TC; 85027-TC; 86592-TC; 93005; Z7610